=== PATIENT | male | born 1950 | race Caucasian/White ===

== ENCOUNTER 2023-07-24 06:15 | Inpatient (IN) | payer MEDICARE, SELFPAY ==
[2023-07-24] VITALS (16 sets, daily range): BP systolic 106–147; BP diastolic 68–111; PULSE 61–135; RESP 15–24; TEMP 35.3–36.9; O2SAT 94–99; BMI 40.4
--- NOTE | ~2023-07-24 | XR_ITS ---
Portable chest x-ray Comparison: 07/26/2023 Clinical History: Respiratory failure Findings: Endotracheal tube, NG tube, and right IJ line are in place. There is bibasilar pulmonary c onsolidation, left worse than right. Probable minimal left pleural effusion. Cardiomediastinal silho uette is stable. Bones and soft tissues are unremarkable. Impression: Minimal left pleural effusion with probable bibasilar pulmonary edema/atelectasis. Correlate clinical ly for pneumonia, especially the left lung base. Support tubes, as above. Reviewed, dictated and finalized at location . TAL GAZER Impression: Minimal left pleural effusion with probable bibasilar pulmonary edema/atelectas is. Correlate clinically for pneumonia, especially the left lung base. Support tubes, as above.
--- NOTE | ~2023-07-24 | XR_ITS ---
EXAMINATION: XR chest port-a-cath/central Exam Date/Time: 07/30/2023 15:07 HOISTMAN HISTORY: dialysis access Comparison: 07/30/2023 at 5:51 AM. RESULT: Lines, tubes, and devices: New left IJ dialysis catheter terminating in the right atrium. Endotrache al tube terminates 5.3 cm above the bunny. Subdiaphragmatic NG tube. Right IJ central line terminate s in the upper SVC. Multiple fractured sternotomy wires with displaced fragments that are stable in p osition. Lungs and pleura: Low volumes with crowding. Streaky linear bilateral lower lung opacities. Minimal bilateral costophrenic angle blunting. Mild diffuse reticular opacities. Cardiomediastinal silhouette: Stable. Other: No acute osseous or upper abdominal finding. IMPRESSION: Right IJ dialysis catheter in good position. Remaining lines and tubes detailed above. Mild interstitial edema. Small bilateral effusions. Bibasilar atelectasis. Infection is not excluded. Reviewed, dictated and finalized at location K. TMAN IMPRESSION: Right IJ dialysis catheter in good position. Remaining lines and tubes detailed above. Mild interstitial edema. Small bilateral effusions. Bibasilar atelectasis. Infe ction is not excluded.
--- NOTE | ~2023-07-24 | CT_ITS ---
EXAMINATION: 1. CT facial & cervical spine wo DATE: 07/24/2023 08:19 INDICATION: Fall with head injury TECHNIQUE: 1. Computed tomography (CT) of the maxillofacial region and of the cervical spine were performed with out intravenous contrast. Sagittal and coronal reconstructions of both regions were obtained. Automat ed exposure control and iterative reconstruction technique were employed. The dose-length product was 632.17 mGy-cm. COMPARISON: None. FINDINGS: Maxillofacial CT: Small anterior right frontal scalp hematoma. No fractures identified. Specifically the zygomatic arch es, mandible, nasal bones and price of the orbits are normal. Antral window procedure with resection of a portion of the medial wall of the right maxillary sinus. Remaining price of the maxillary sinuse s are intact.. Minimal rightward deviation of the nasal septum which parallels the contours of indete rminate source. Mild mucosal thickening the ethmoid sinuses. Frontal sinuses are hyperpneumatized. Ma stoid air cells and middle ear cavities are clear. There is streak artifact associated with multiple dental restorations. There are changes of bilateral intraocular lens replacement. Cervical spine CT: Alignment is normal. Vertebral body heights are normal. No fracture. Moderate disc height loss with s evere bilateral uncovertebral osteoarthritis at C5-C6 and mild disc height loss at C2-C3, C3-C4 and C 6-C7 with scattered mild and moderate uncovertebral osteoarthritis. There are disc bulges resulting i n mild central canal stenosis at C3-C4, C5-C6 and C6-C7. There is multilevel mild to moderate bilater al cervical facet osteoarthritis. There is multilevel mild cervical neural foraminal stenosis. Athero sclerotic calcifications along the bilateral carotid arteries. Cervical soft tissues are otherwise un remarkable. Change of prior median sternotomy wire fragments in the superior mediastinum. Visualized apices of lungs are clear. IMPRESSION: 1. No maxillofacial or cervical spinal fractures. 2. Moderate cervical spondylosis. Reviewed, dictated and finalized at location A. ENGINEER
--- NOTE | ~2023-07-24 | XR_ITS ---
EXAMINATION: XR chest 1V portable DATE: 07/24/2023 07:38 INDICATION: Congestive heart failure TECHNIQUE: frontal view of the chest was obtained. COMPARISON: Chest radiograph dated 09/13/2016 FINDINGS: Cardiomegaly with left paracardial fat pad. At the oblique linear opacity right midlung zone which co uld represent discoid atelectasis or minimal amount fluid along the fissures. No other pleural effusi on, airspace opacities, pulmonary edema or pneumothorax. Median sternotomy wires and plate-screws an d mediastinal surgical clips are seen, likely from prior coronary artery bypass grafting. IMPRESSION: 1. Cardiomegaly. 2. Trace pleural effusion along a fissure versus discoid atelectasis at the right midlung zone. Reviewed, dictated and finalized at location A. NICAL SOLUTIONS CONSULTANT IMPRESSION: 1. Cardiomegaly. 2. Trace pleural effusion along a fissure versus discoid atelectasis at the rig ht midlung zone.
--- NOTE | ~2023-07-24 | US_ITS ---
EXAMINATION: US renal BI DATE: 07/26/2023 19:45 INDICATION: CHARLIE, R/O HYDRO TECHNIQUE: Multiple grayscale and Doppler ultrasound images of the kidneys were obtained. COMPARISON: CT abdomen pelvis 07/26/2023 FINDINGS: The right kidney measures 9.5 x 5.7 x 5.4 cm. The left kidney measures cm. The kidneys demonstrate no rmal parenchymal echogenicity. There is no hydronephrosis. The bladder is decompressed by a Ghotra cat heter and therefore not well evaluated. IMPRESSION: Unremarkable renal sonogram findings. Reviewed, dictated and finalized at location K. ATRIC GENETICIST
--- NOTE | ~2023-07-24 | XR_ITS ---
Portable chest x-ray Comparison: 07/28/2023 Clinical History: Respiratory failure Findings: Endotracheal tube, NG tube, and right IJ line remain in place. There is bibasilar airspace disease, unchanged. Cardiomediastinal silhouette is stable. Bones and soft tissues are unremarkable . Impression: Stable bibasilar airspace disease. Correlate for pulmonary edema/atelectasis versus pneumonia. Support tubes, as above. Reviewed, dictated and finalized at location . R SHOP SUPERINTENDENT Impression: Stable bibasilar airspace disease. Correlate for pulmonary edema/atelectasis ve rsus pneumonia. Support tubes, as above.
--- NOTE | ~2023-07-24 | XR_ITS ---
EXAMINATION: XR abdomen gastric tube insert DATE: 07/28/2023 16:44 INDICATION: Orogastric tube placement. TECHNIQUE: A supine view of the abdomen was obtained. COMPARISON: Abdomen radiograph 07/26/2023 FINDINGS: The lower abdomen and right side of the abdomen are excluded. The orogastric tube tip is in the stomach. IMPRESSION: 1. Orogastric tube tip in the stomach. Reviewed, dictated and finalized at location E. R/RELAY TECHNICIAN
--- NOTE | ~2023-07-24 | XR_ITS ---
EXAMINATION: XR chest 1V portable INDICATION: Respiratory failure TECHNIQUE: Portable AP chest at 0551 hours COMPARISON: 07/29/2023 FINDINGS: The endotracheal tube ends approximately 4.5 cm above the bunny. The nasogastric tube is f ollowed as far as the stomach. Its tip is beyond the inferior margin of the radiograph. A right inter nal jugular central venous catheter ends with its tip in the proximal superior vena cava. Cardiomegal y is noted. There are small stable pleural effusions. Bibasilar airspace opacities persist without si gnificant change. There is a diffuse interstitial pattern with slight worsening. There is no pneumoth orax. Changes of prior cardiac surgery are noted. IMPRESSION: 1. Cardiomegaly with slightly worsened pulmonary edema. 2. Stable bibasilar airspace opacities, consistent with atelectasis versus pneumonia. 3. Small pleural effusions. Reviewed, dictated and finalized at location F. SUPERVISOR IMPRESSION: 1. Cardiomegaly with slightly worsened pulmonary edema. 2. Stable bibasilar airspace opacities, consistent with atelectasis versus pneu monia. 3. Small pleural effusions.
--- NOTE | ~2023-07-24 | XR_ITS ---
EXAMINATION: XR abdomen/kub 1V DATE: 07/25/2023 22:40 INDICATION: Vomiting. TECHNIQUE: An upright view of the abdomen was obtained. COMPARISON: None. FINDINGS: The small bowel is normal in caliber. There is distention of the colon. There is a moderate volume of stool in the colon. Median sternotomy wires and mediastinal surgical clips are seen, likel y from prior coronary artery bypass grafting. Partially visualized is instrumentation in right pelvis . IMPRESSION: 1. Distention of the colon, which may be adynamic ileus or distal obstruction. Reviewed, dictated and finalized at location E. MOBILE ACCESSORIES INSTALLER
--- NOTE | ~2023-07-24 | CT_ITS ---
Non-contrast CT scan of the Abdomen and Pelvis Clinical indication: Abdominal distention and pain Technique: 2.5 mm axial scans were obtained through the abdomen and pelvis without intravenous or or al contrast. Dose reduction technique was used on this scan by utilizing automated exposure control a nd iterative reconstruction technique. The dose-length product (DLP) was 1923.04 mGy-cm. Findings: Images through the lung bases reveal small bilateral pleural effusions with bibasilar atel ectatic change. Cardiomegaly noted. There is no evidence of renal or ureteral calculi. The kidneys and the ureters are nondilated. The liver, spleen, pancreas, and adrenals appear normal. Small amount of layering gallbladder sludge or small gallstones are present. There are atherosclerotic calcifications of the aorta. There is no evidence of bowel obstruction. Large amount of stool suggests constipation. No definite p athologic bowel wall thickening. Small amount of abdominal ascites and minimal mesenteric edema prese nt. Images through the pelvis are degraded by streak artifact from right hip arthroplasty. There is no ev idence of ascites or lymphadenopathy. Urinary bladder collapsed with Ghotra catheter. No pelvic mass e vident. Fat-containing right inguinal hernia noted. Impression: Constipation. No definite CT evidence for cholecystitis. Small amount of ascites and minimal mesenteric edema, nonspecific. Fat-containing right inguinal hernia. Cholelithiasis/gallbladder sludge. Small bilateral pleural effusions with bibasilar atelectasis. Reviewed, dictated and finalized at [facility]. RVISOR FIREARMS Impression: Constipation. No definite CT evidence for cholecystitis. Small amount of ascites and minimal mesenteric edema, nonspecific. Fat-containing right inguinal hernia. Cholelithiasis/gallbladder sludge. Small bilateral pleural effusions with bibasilar atelectasis.
--- NOTE | ~2023-07-24 | XR_ITS ---
Portable chest x-ray Comparison: 07/24/2023 Clinical History: Line placement Findings: Endotracheal tube, NG tube, and right IJ line are in satisfactory positions. There is prob able minimal central congestive change and mild bibasilar haziness. Cardiomediastinal silhouette is stable. Bones and soft tissues are unremarkable. Impression: Support tubes, as above. Probable mild bibasilar pulmonary edema/atelectasis. Reviewed, dictated and finalized at location M. IER RECEPTIONIST Impression: Support tubes, as above. Probable mild bibasilar pulmonary edema/atelectasis.
--- NOTE | ~2023-07-24 | XR_ITS ---
Upright portable view of the abdomen Clinical history: NG tube placement Findings: NG tube is in satisfactory position. Bowel gas pattern is nonspecific. No evidence for obst ruction or free air. No abnormal mass lesion or calcification is seen. Osseous structures are intact. Impression: NG tube in satisfactory position. Reviewed, dictated and finalized at [facility]. ER OYSTER Impression: NG tube in satisfactory position.
--- NOTE | ~2023-07-24 | US_ITS ---
EXAMINATION: US abdomen limited DATE: 07/26/2023 19:50 INDICATION: Elevated LFTs TECHNIQUE: Multiple grayscale and Doppler ultrasound images of limited portions of the abdomen were o btained. COMPARISON: CT abdomen pelvis 07/26/2023. FINDINGS: Examination limited by body habitus and intubation. The visualized portions of the pancreas are normal. The liver is normal with normal echogenicity and echotexture. No surface nodularity. Nor mal hepatopetal flow in the main portal vein. Layering mobile sludge in the gallbladder. Small volume pericholecystic fluid and in the right upper quadrant. The common bile duct measures 4 mm. No sonogr aphic Efrnando sign could not be assessed. IMPRESSION: Mobile gallbladder sludge. Gallbladder wall thickening. Small volume pericholecystic and right upper quadrant fluid. Reviewed, dictated and finalized at location K. TICS FABRICATOR AND ASSEMBLER IMPRESSION: Mobile gallbladder sludge. Gallbladder wall thickening. Small volume pericholec ystic and right upper quadrant fluid.
--- NOTE | ~2023-07-24 | CT_ITS ---
EXAMINATION: CT brain wo con DATE: 07/24/2023 08:19 INDICATION: Fall with posterior head injury TECHNIQUE: Computed tomography (CT) of the head was performed without intravenous contrast. Sagittal and coronal reconstructions were performed. The mA was adjusted according to patient size. Iterative reconstruction technique was employed. The dose-length product was 681.00 mGy-cm. COMPARISON: None FINDINGS: Small right frontal scalp hematoma. No calvarial fracture. No acute intracranial hemorrhage, acute in farction or abnormal extra axial fluid collection. There is mild scattered white matter hypoattenuati on consistent with chronic small vessel ischemic disease. Symmetric prominence of the sulci consisten t with mild age-appropriate diffuse cerebral volume loss. Ventricles are normal and symmetric. No mas s/mass effect. Changes of bilateral intraocular lens replacement. The orbits and mastoid air cells ar e normal. Mild mucosal thickening in the ethmoid sinuses and prior cervical surgery with resection of the medial wall of the right maxillary sinus. Intracranial calcified cerebral atherosclerosis is not ed. IMPRESSION: 1. No fracture or acute intracranial process. 2. Age-related changes in the brain including mild diffuse volume loss and mild scattered white matte r hypoattenuation consistent with chronic small vessel ischemic disease. Reviewed, dictated and finalized at location A. ER OPERATOR ASBESTOS SHINGLE IMPRESSION: 1. No fracture or acute intracranial process. 2. Age-related changes in the brain including mild diffuse volume loss and mild scattered white matter hypoattenuation consistent with chronic small vessel is chemic disease.
--- NOTE | ~2023-07-24 | XR_ITS ---
Portable chest x-ray Comparison: 07/27/2023 Clinical History: Respiratory failure Findings: Endotracheal tube, NG tube, and right IJ line are in satisfactory positions. There is biba silar airspace disease. Cardiomediastinal silhouette is stable. Bones and soft tissues are unremarka ble. Impression: Probable bibasilar pulmonary edema/atelectasis. Correlate clinically for pneumonia. Support tubes, as above. Reviewed, dictated and finalized at location . HOUSE PRODUCTION WORKER Impression: Probable bibasilar pulmonary edema/atelectasis. Correlate clinically for pneumo vianney. Support tubes, as above.
--- NOTE | ~2023-07-24 | XR_ITS ---
EXAMINATION: XR chest 1V portable INDICATION: Respiratory failure TECHNIQUE: Portable AP chest at 0539 hours COMPARISON: 07/30/2023 FINDINGS: The endotracheal and nasogastric tubes appear to be stable in position. A right internal ju gular central venous catheter ends with its tip in the proximal superior vena cava. Diffuse interstit ial opacities persist without significant change. Cardiomegaly is noted. There are changes of prior c ardiac surgery. There are small pleural effusions. Bibasilar airspace opacities are unchanged. There is no pneumothorax. IMPRESSION: 1. Cardiomegaly with stable pulmonary edema. 2. Stable bibasilar airspace opacities, consistent with atelectasis versus pneumonia. 3. Small pleural effusions. Reviewed, dictated and finalized at location F. ATRIC SPEECH THERAPIST IMPRESSION: 1. Cardiomegaly with stable pulmonary edema. 2. Stable bibasilar airspace opacities, consistent with atelectasis versus pneu monia. 3. Small pleural effusions.
--- NOTE | 2023-07-24 06:23 | ECG_ITS ---
Measurements Intervals [place] Rate: 151 P: [place]: 0 QRS: -56 QRSD: 135 T: 95 QT: 316 QTc: 501 Interpretive Statements ATRIAL FLUTTER/TACHYCARDIA WITH RAPID VENTRICULAR RESPONSE LEFT AXIS DEVIATION NONSPECIFIC INTRAVENTRICULAR CONDUCTION DELAY [130+ ms QRS DURATION] POSSIBLE ANTERIOR MYOCARDIAL INFARCTION , OF INDETERMINATE AGE [30 ms Q WAVE IN V3/V4, OR R < 0.2 mV IN V4 ABNORMAL ECG] NO PREVIOUS ECG AVAILABLE FOR COMPARISON Electronically Signed On 07-24-2023 12:05:26 FRUIT LOADER by Steve Shaw M.D.
[2023-07-24 06:44] LABS: Basophils Absolute Auto 0.1 K/mm3 (0.0-0.1); Basophils Percent Auto 0.4 % (0.2-1.2); Eosinophils Absolute Auto 0.1 K/mm3 (0-0.3); Eosinophils Percent Auto 1.1 % (0-4.4); Hematocrit 34.5 % (42.0-52.0); Hemoglobin 10.5 g/dL (14.0-18.0); Immature Granulocyte Absolute 0.06 K/mm3 (0.00-0.031); Immature Granulocyte Percent A 0.5 % (0-0.5); Lymphocytes Absolute Auto 0.59 K/mm3 (0.9-3.2); Lymphocytes Percent Auto 5.2 % (18.3-44.2); Mean Corpuscular HGB Conc 30.4 g/dl (32-36); Mean Corpuscular Hemoglobin 24.8 pg (26-34); Mean Corpuscular Volume 81.4 fl (80-100); Mean Platelet Volume 9.2 fl (7.4-10.4); Monocytes Percent Auto 8.3 % (2.6-8.5); Neutrophils Absolute Auto 9.6 K/mm3 (1.3-6.7); Neutrophils Percent Auto 84.5 % (45.5-73.1); Platelet Count Result 281 k/mm3 (150-375); Red Blood Count 4.24 M/mm3 (4.6-6.20); Red Cell Distribution Width 19.1 % (11.5-14.5); White Blood Count 11.4 K/mm3 (4.5-10.0)
[2023-07-24] MEDS: SODIUM CHLORIDE 0.9% IV 1,000 ML 999 ML IV CONT (06:48)
[2023-07-24] MEDS: dilTIAZem HCl INJ 25 MG/5 ML VIAL 20 MG IV PUSH (06:55)
[2023-07-24] MEDS: dilTIAZem 100 MG/100 ML 100 MG/100 ML BAG IV CONT ×2 (06:58→18:34)
[2023-07-24 07:01] LABS: Alanine Aminotransferase 16 U/L (6-50); Alkaline Phosphatase 216 U/L (38-126); Anion Gap 10 mmol/L (8-16); Aspartate Amino Transferase 32 U/L (17-59); Bilirubin,Total 0.9 mg/dL (0.2-1.3); Blood Urea Nitrogen 30 mg/dL (9-20); Calcium 10.6 mg/dL (8.4-10.2); Carbon Dioxide 32 mmol/L (22-30); Chloride 88 mmol/L (98-107); Estimated CRCL calculation 54 ml/min; Estimated Glomerular Filt Rate 40; Glucose 126 mg/dL (65-110); Sodium 130 mmol/L (137-145)
[2023-07-24 07:09] LABS: INR 1.6
[2023-07-24 07:10] LABS: Partial Thromboplastin Time 40.9 SECONDS (22.3-36.8)
[2023-07-24 07:15] LABS: NT Pro B Type Natriuretic Pept 7590 pg/mL (19.9-100)
--- NOTE | 2023-07-24 09:58 | ED.FALL ---
HPI - Fall General Chief Complaint: Fall Stated Complaint: LAC TO FOREHEAD S/P GLF Time Seen by Provider: 07/24/23 07:07 Source: patient, EMS, RN notes reviewed and old records reviewed Mode of arrival: EMS Limitations: no limitations History of Present Illness HPI Narrative: This is a 73 year old male with history of afib who presents for evaluation after a fall. PAtient states he was walking and his legs gave out. He fell and he it his head but he is unsure of what object. He denies LOC but he takes chronic anticoagulation. He denies dizziness, chest pain or shortness of breath. He denies any injuries. He states he is up to date on his tetanus. PRior to my arrival, it was reported patient was in afib with RVR with low blood pressure. He was given diltiazem [address] on an infusion. Related Data Home Medications Medication Instructions Recorded Confirmed furosemide 40 mg tablet 40 mg PO BID 07/24/23 07/24/23 gabapentin 400 mg capsule 400 mg PO TID 07/24/23 07/24/23 insulin glargine 100 unit/mL (3 50 unit subcut DAILY 07/24/23 07/24/23 mL) subcutaneous pen (Lantus Solostar U-100 Insulin) insulin lispro 100 unit/mL See Protocol subcut TIDWM 07/24/23 07/24/23 subcutaneous pen (Humalog KwikPen (U-100) Insulin) losartan 25 mg tablet 25 mg PO DAILY 07/24/23 07/24/23 magnesium oxide 400 mg (241.3 mg 400 mg PO BID 07/24/23 07/24/23 magnesium) tablet oxycodone myristate 18 mg capsule 18 mg PO BID 07/24/23 07/24/23 sprinkle extended release 12hr(DON'T CRUSH) (Xtampza ER) rivaroxaban 2.5 mg tablet (Xarelto) 2.5 mg PO Q12H 07/24/23 07/24/23 rosuvastatin 40 mg tablet 40 mg PO DAILY 07/24/23 07/24/23 spironolactone 25 mg tablet 25 mg PO BID 07/24/23 07/24/23 tamsulosin 0.4 mg capsule 0.4 mg PO DAILY 07/24/23 07/24/23 torsemide 20 mg tablet 20 mg PO BID 07/24/23 07/24/23 trazodone 50 mg tablet 50 mg PO HS 07/24/23 07/24/23 Allergies Allergy/AdvReac Type Severity Reaction Status Date / Time No Known Allergies Allergy Verified 07/24/23 06:59 Review of Systems Constitutional: Constitutional: Denies weakness Cardiovascular: Cardiovascular: Denies syncope, Denies rapid heart rate, Denies irregular heart rhythm, Denies leg edema and Denies dyspnea Respiratory: Respiratory: Denies chest congestion, Denies hemoptysis, Denies excessive phlegm production and Denies dyspnea Gastrointestinal: Gastrointestinal: Denies abdominal pain, Denies hematochezia, Denies diarrhea and Denies vomiting Genitourinary: Genitourinary: Denies hematuria, Denies dysuria, Denies penile discharge and Denies testicular pain Musculoskeletal: Musculoskeletal: Denies joint swelling, Denies loss of height and Denies muscle weakness Neurologic: Denies syncope, Denies focal weakness and Denies weakness [facility] Past Medical History Medical History (Updated 07/24/23 @ 17:21 by Beatrice Ray MD) Benign prostatic hyperplasia Chronic anemia Combined systolic and diastolic congestive heart failure Previous echocardiogram showed diastolic dysfunction with mild LV systolic dysfunction with EF of 45 to 50%. Coronary artery disease Hyperlipidemia Hypertension Paroxysmal atrial fibrillation Pericardial effusion Status post pericardial window. Peripheral neuropathy Peripheral vascular disease Type 2 diabetes mellitus Surgical History Surgical History (Updated 07/24/23 @ 13:49 by Pau Perrin PA-C) History of above-knee amputation of both lower extremities History of total right hip arthroplasty (2011) History of transurethral resection of prostate (07/2017) Status post coronary artery bypass grafts x 5 (06/2016) Status post creation of pericardial window (06/2016) Family History Family History (Updated 07/24/23 @ 13:47 by Pau Perrin PA-C) Mother Acute myocardial infarction Coronary artery disease Diabetes mellitus Father Colon cancer Social History Social History (Updated 07/24/23 @ 13:47 by Pau Sim
[2023-07-24 12:55] LABS: Glucose Point of Care 110 mg/dl (65-105)
--- NOTE | 2023-07-24 13:33 | PM.IMHP ---
H&P: HPI History of Present Illness Date/Time: 07/24/23 13:30 Chief Complaint: Fall. Narrative: This is a 73-year-old male with history of type 2 diabetes mellitus, hypertension, combined systolic and diastolic congestive heart failure, paroxysmal atrial fibrillation, coronary artery disease status post CABG in June 2016, peripheral vascular disease status post bilateral [id number] amputations, chronic anemia, and benign prostatic hyperplasia who presented to the emergency department via EMS from home for evaluation after a fall. The patient provides the following history. Today he was getting up from his chair and lost his balance, possibly slipping on a small amount of urine that had leaked from his Ghotra catheter bag, causing him to fall forward and hit his head on his walker. He has multiple skin tears on his arms and sustained a laceration on his right forehead above the eyebrow. Luckily he had no other injuries. There was no loss of consciousness. He called EMS for lift assist as he is a bilateral lower extremity amputee and had difficulties getting up. He was brought in for evaluation after he was found to have atrial fibrillation with rapid ventricular response. On arrival to the emergency department he was found to be in atrial fibrillation with rapid ventricular response and he was started on a diltiazem drip with improvement in his rate. Labs were significant for a BUN of 30, creatinine 1.70, sodium 130, chloride 88, calcium 10.6, troponin up to 0.520. With further questioning he endorses having 4 to 6 loose stools a day for the past week or so and he thinks that he is dehydrated. He has not had any sensations of racing heart or palpitations and he also denies lightheadedness, dizziness, chest pain, pleuritic pain, and shortness of breath. Appetite has been okay but he thinks he is dehydrated. No nausea or vomiting. Review of Systems Review of Systems: Twelve systems were reviewed and are negative except for as per HPI. [facility] Past Medical History Medical History (Updated 07/25/23 @ 00:00 by Pau Perrin PA-C) Benign prostatic hyperplasia Chronic anemia Combined systolic and diastolic congestive heart failure Previous echocardiogram showed diastolic dysfunction with mild LV systolic dysfunction with EF of 45 to 50%. Coronary artery disease Hyperlipidemia Hypertension Paroxysmal atrial fibrillation Pericardial effusion Status post pericardial window. Peripheral neuropathy Peripheral vascular disease Type 2 diabetes mellitus Surgical History Surgical History (Updated 07/24/23 @ 23:54 by Pau Perrin PA-C) History of left below knee amputation History of right above knee amputation History of total right hip arthroplasty (2011) History of transurethral resection of prostate (07/2017) Status post coronary artery bypass grafts x 5 (06/2016) Status post creation of pericardial window (06/2016) Family History Family History Mother Acute myocardial infarction Coronary artery disease Diabetes mellitus Father Colon cancer Social History Social History (Updated 07/24/23 @ 23:54 by Pau Perrin PA-C) Social History: Surrogate medical decision maker: Jayy Sandsyeimy, brother. Code status: Full code. Smoking status: Never smoker Alcohol intake: never Substance use: never Lack of Transportation: No Lack of Food: Never True Current Housing: I Do Not Have Housing Concerned About Future Housing: No Difficulty Paying Gas/Electric Bills: No Difficulty Paying for Meds: No Currently Unemployed: No Education: High School Diploma/GED Difficulty w/ Childcare or Family Care: No Spiritual care concerns: No Meds Home Medications and Allergies Home Medications Medication Instructions Recorded Confirmed Type furosemide 40 mg tablet 40 mg PO BID 07/24/23 07/24/23 History gabapentin 400 mg capsule 400 mg PO T
[2023-07-24 15:48] LABS: Hemoglobin A1C 7.5 % (<5.7)
--- NOTE | 2023-07-24 16:30 | ADMGEN ---
This patient, Brian Iyer, was admitted to IMU Room 232-01. Patient/family oriented to hospital policies and general routines including ID bracelet, bed and alarms, visiting hours, pain management, procedures, bathroom and other care routines, personal items, smoking policy, room service/diet, and visiting hours. Information on how to activate the Rapid Response Team has been discussed. Patient/Family are encouraged to report perceived risks to care and to ask questions if they do not understand what they are told or what they should do.
[2023-07-24 17:41] LABS: Glucose Point of Care 110 mg/dl (65-105)
[2023-07-24] MEDS: SODIUM CHLORIDE 0.9% IV 1,000 ML 100 ML IV CONT (18:34)
[2023-07-24] MEDS: GABAPENTIN 400 MG CAPSULE PO (18:34)
[2023-07-24] MEDS: MAGNESIUM OXIDE 400 MG TABLET PO (18:34)
[2023-07-24 18:36] LABS: Lipase 23 U/L (23-300)
[2023-07-24 18:53] LABS: Troponin I 0.492 ng/mL (0.000-0.034)
[2023-07-24] MEDS: RIVAROXABAN 2.5 MG TABLET PO (20:26)
[2023-07-24] MEDS: traZODone HCL 50 MG TABLET PO (20:26)
[2023-07-24 20:31] LABS: Glucose Point of Care 201 mg/dl (65-105)
[2023-07-24] MEDS: INSULIN ASPART (*BKC) 100 UNITS/ML SUB-Q (20:33)
[2023-07-24] MEDS: oxyCODONE HCL (*CRX) 20 MG TAB SR 12HR PO (21:26)
[2023-07-25] VITALS (25 sets, daily range): BP systolic 83–156; BP diastolic 47–96; PULSE 65–148; RESP 20–26; TEMP 35.6–36.4; O2SAT 90–98
--- NOTE | 2023-07-25 | ECHO_ITS ---
Patient Info Name: Brian Iyer Age: 73 years : 1950 Gender: Male Ht: 70 in Wt: 340 lbs BSA: 2.84 m2 HR: 106 bpm BP: 148 / 70 mmHg Heart Rhythm: Tachycardia Technical Quality: Poor Exam Date: 07/25/2023 1:41 PM Exam Location: Echo Lab Patient Status: Inpatient Admit Date: 07/25/2023 Staff Ordering Physician: Pau Perrin PA-C Dredge Operator Supervisor: Radha Rivera RDCS Attending Provider: Lisset Arteaga DO Referring Physician: Aydin RIVERA; Exam Type: CA echo dop color flow w con Study Info Indications - elevated troponin Complete two-dimensional, color flow and Doppler transthoracic echocardiogram is performed with contrast to opacify the left ventricle and to improve the deliniation of the left ventricle endocardial borders. Contrast/Agitated Saline Contrast/Ag. Saline: Definity Amount: 2.00 ml Administered By: Radha Rivera RDCS Existing IV Access: Yes IV Access Condition: patent with no signs of infiltration Summary 1. Mild left ventricular enlargement with mild concentric hypertrophy. Severe left ventricular dysfunction with an estimated ejection fraction of 25-30%. There was severe hypokinesis of the inferior wall and septum, distal anterior wall, and distal lateral wall. The apex was nearly akinetic. Diastolic dysfunction is present. There is abnormal septal motion which is due in part to the bundle branch block but also some flattening during diastole consistent with elevated right-sided pressures. 2. There is keks-an-kqdeexli right ventricular enlargement and hypokinesis. 3. Moderate left atrial enlargement. 4. Mild tricuspid regurgitation. 5. Severe pulmonary hypertension, estimated pulmonary arterial systolic pressure is 71 mmHg. 6. Atrial fibrillation with heart rates running 110-1 40s. 7. Very technically difficult study due to body habitus and rapid ventricular rate. Definity echo contrast used. 8. Consider repeating with a limited echo and with definity, once heart rate is controlled. Left Ventricle Left ventricular chamber dimension is mildly enlarged. Left ventricular systolic function is normal, estimated at 25-30%. There is mildly increased left ventricular wall thickness. Left ventricular septal wall motion is abnormal with septal motion related to bundle branch block. The left ventricular diastolic function is abnormal. Right Ventricle Right ventricular chamber dimension is mildly enlarged. Right ventricular systolic function is reduced. Left Atria Left atrial chamber dimension is moderately enlarged. Right Atria Right atrial chamber dimension is normal. Aortic Valve The aortic valve is trileaflet. There is no aortic valve sclerosis. There is no aortic valve stenosis. There is no aortic valve regurgitation. Pulmonic Valve The pulmonic valve is normal. There is no pulmonic valve stenosis. There is trace pulmonic regurgitation. Mitral Valve The mitral valve has normal leaflets. There is no mitral valve stenosis. There is no mitral valve regurgitation. There is mild mitral valve calcification. Tricuspid Valve The tricuspid valve leaflets are normal. There is no significant tricuspid valve stenosis. There is mild tricuspid valve regurgitation. Severe pulmonary hypertension, estimated pulmonary arterial systolic pressure is 71 mmHg. Pericardium/Pleural The pericardium appears normal. There is no pericardial effusion. Inferior Vena Cava Dilated inferior vena cava with <50% collapse upon inspiration consistent with significantly elevated right a
[2023-07-25 03:21] LABS: Toxigenic C. Diff POSITIVE (NEGATIVE)
[2023-07-25] MEDS: SODIUM CHLORIDE 0.9% IV 1,000 ML 100 ML IV CONT ×2 (04:33→16:03)
[2023-07-25] MEDS: dilTIAZem 100 MG/100 ML 100 MG/100 ML BAG 10 MG IV CONT (04:34)
--- NOTE | 2023-07-25 04:55 | PC.NURSE ---
Patient has been extremely belligerent, uncooperative with care and manipulative throughout the night. Rather than using his call light, he pulls off his monitor leads, pulls out his IV, states he wants to go to [place]. He continues to be alert and oriented X 3. In trying to obtain a urine sample from his Ghotra catheter, the patient removed the clamp from the tubing making urine collection unacceptable. Again, he wants to go to [place]. I advised the patient that if he wants to leave, and can find a ride, we can send him home against medical advice, however he is at risk for sudden due to AFIB/RVR, fall risk on Xarelto after being admitted with a fall, and frequent liquid stools due to CDIFF. Patient states understanding, however continues to call people on his phone. dog licenser, and nursing forming and assembling supervisor have been made aware of the situation. As of this point, patient has not been physically abusive therefore no need to involve security.
[2023-07-25 05:38] LABS: Basophils Absolute Auto 0.1 K/mm3 (0.0-0.1); Basophils Percent Auto 0.3 % (0.2-1.2); Eosinophils Percent Auto 0.3 % (0-4.4); Hematocrit 32.1 % (42.0-52.0); Hemoglobin 9.9 g/dL (14.0-18.0); Immature Granulocyte Absolute 0.09 K/mm3 (0.00-0.031); Immature Granulocyte Percent A 0.6 % (0-0.5); Lymphocytes Absolute Auto 0.56 K/mm3 (0.9-3.2); Lymphocytes Percent Auto 3.6 % (18.3-44.2); Mean Corpuscular HGB Conc 30.8 g/dl (32-36); Mean Corpuscular Hemoglobin 25.3 pg (26-34); Mean Corpuscular Volume 81.9 fl (80-100); Mean Platelet Volume 9.2 fl (7.4-10.4); Monocytes Absolute Auto 1.1 K/mm3 (0.1-0.6); Monocytes Percent Auto 6.9 % (2.6-8.5); Neutrophils Absolute Auto 13.8 K/mm3 (1.3-6.7); Neutrophils Percent Auto 88.3 % (45.5-73.1); Platelet Count Result 317 k/mm3 (150-375); Red Blood Count 3.92 M/mm3 (4.6-6.20); Red Cell Distribution Width 19.4 % (11.5-14.5); White Blood Count 15.6 K/mm3 (4.5-10.0)
[2023-07-25 06:14] LABS: Alanine Aminotransferase 18 U/L (6-50); Albumin Level 3.9 g/dL (3.5-5.1); Alkaline Phosphatase 199 U/L (38-126); Anion Gap 13 mmol/L (8-16); Aspartate Amino Transferase 41 U/L (17-59); Bilirubin,Total 1.2 mg/dL (0.2-1.3); Blood Urea Nitrogen 27 mg/dL (9-20); Calcium 9.8 mg/dL (8.4-10.2); Carbon Dioxide 26 mmol/L (22-30); Chloride 92 mmol/L (98-107); Estimated CRCL calculation 57 ml/min; Estimated Glomerular Filt Rate 54; Glucose 163 mg/dL (65-110); Magnesium 2.2 mg/dL (1.6-2.3); Potassium 4.2 mmol/L (3.4-5.0); Sodium 131 mmol/L (137-145)
[2023-07-25] MEDS: VANCOMYCIN ORAL 125 MG/2.5 ML SYRUP PO ×3 (07:02→18:34)
--- NOTE | 2023-07-25 08:26 | PM.CNCAR ---
Assessment and Plan Assessment and plan (1) Atrial fibrillation with rapid ventricular response: Code(s): I48.91 - Unspecified atrial fibrillation Status: Acute Assessment and Plan: New diagnosis atrial fibrillation, chronicity is unknown. He is currently on a diltiazem drip and heart rate remains significantly elevated. Discontinue diltiazem drip in favor of amiodarone. Will administer bolus first followed by drip per protocol. He is on low dose Xarelto for CV risk reduction. Will shift this to full dose for stroke prophylaxis with AF Check echo Continue telemetry Daily BMP. Want to keep K+ ~4,0 and Mag ~2.0 (2) Combined systolic and diastolic congestive heart failure: Code(s): I50.40 - Unspecified combined systolic (congestive) and diastolic (congestive) heart failure Status: Acute Assessment and Plan: He has abdominal edema and some edema in R lower extremity. Small pleural effusions on CXR. NTpro BNP 7590. He takes furosemide 40mg b.i.d. at home which should be resumed Daily weight Strict intake and output CHF counseling (3) Elevated troponin: Code(s): R79.89 - Other specified abnormal findings of blood chemistry Status: Acute Assessment and Plan: Troponin levels 0.330, 0.520, and 0.492. He denies chest pain. Likely demand ischemia secondary to volume overload and known underlying CAD rather than ACS. He did undergo an angiogram in August of 2021 to assess graft patentcy and was found to have patent grafts to the LAD, diag/OM, and PDA and was felt to be optimally revascularized. No plan to undergo any type of ischemic evaluation at this time. (4) Coronary artery disease: Code(s): I25.10 - Atherosclerotic heart disease of [place] coronary artery without angina pectoris Status: Acute Assessment and Plan: History of severe multivessel CAD s/p CABG in 2016. Stable. Continue statin. Since he is on systemic a/c for AF will not restart his ASA. History of Present Illness History of Present Illness Consult date/time: 07/25/23 08:26 Requesting physician: Beatrice Ray MD Consult reason: atrial fibrillation Reason For Visit: atrial fibrillation with rvr Narrative: Mr. Iyer is a 73 year old male with a history of coronary artery disease and ischemic cardiomyopathy. He also has extensive peripheral vascular disease. This is a patient who presents to the hospital after sustaining a fall. He states he was getting up from his chair and while walking to the other side of the room tripped and fell. He denies losing consciousness. He was found to be in atrial fibrillation with rapid ventricular response in the ED and has been placed on a diltiazem drip. His rate remains significantly elevated, generally ranging from 120bpm - 150bpm. He feels palpitations intermittently but denies any chest pain or shortness of breath. He does endorse orthopnea and some abdominal bloating/fullness over the past couple of weeks. He is intermittently confused at the time of my evaluation. Review of Systems Review of Systems: All systems reviewed & are unremarkable except as noted in HPI and below PMFSH Past Medical History Medical History (Updated 07/25/23 @ 16:06 by HANNAH Espinoza) Benign prostatic hyperplasia Chronic anemia Combined systolic and diastolic congestive heart failure Previous echocardiogram showed diastolic dysfunction with mild LV systolic dysfunction with EF of 45 to 50%. Coronary artery disease Hyperlipidemia Hypertension Paroxysmal atrial fibrillation Pericardial effusion Status post pericardial window. 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
[2023-07-25 08:28] LABS: Glucose Point of Care 176 mg/dl (65-105)
[2023-07-25] MEDS: ROSUVASTATIN 10 MG TABLET 40 MG PO (10:26)
[2023-07-25] MEDS: GABAPENTIN 400 MG CAPSULE PO ×3 (10:26→16:04)
[2023-07-25] MEDS: oxyCODONE HCL (*CRX) 20 MG TAB SR 12HR PO ×2 (10:27→21:57)
[2023-07-25] MEDS: MAGNESIUM OXIDE 400 MG TABLET PO ×2 (10:27→16:04)
[2023-07-25] MEDS: TAMSULOSIN HCL 0.4 MG CAPSULE PO (10:27)
[2023-07-25] MEDS: AMIODARONE 150 MG/D5W 100 ML 150 MG/100 ML BAG 600 MG IV CONT (10:28)
[2023-07-25] MEDS: AMIODARONE 360 MG/D5W 200 ML 360 MG/200 ML BAG 33.33 MG IV CONT (10:29)
[2023-07-25] MEDS: INSULIN GLARGINE (*BKC) 100 UNITS/ML 50 UNITS SUB-Q (10:43)
[2023-07-25 12:19] LABS: Glucose Point of Care 213 mg/dl (65-105)
[2023-07-25] MEDS: PERFLUTREN LIPID MICROSPHERES 1.5 ML VIAL DILUTED TO 10 ML TOTAL VOLUME IV PUSH (13:00)
[2023-07-25] MEDS: INSULIN ASPART (*BKC) 100 UNITS/ML SUB-Q ×2 (13:11→17:30)
[2023-07-25] MEDS: ONDANSETRON INJ 4 MG/2 ML VIAL IV PUSH (13:12)
--- NOTE | 2023-07-25 13:39 | PCOTNOTE ---
Addendum entered by Kamila Mack OT 07/25/23 13:41: Nursing stated pt. currently confused and has uncontrolled HR, requested follow up tomorrow/ Original Note: Attempted to see pt. for occupational therapy evaluation. Pt. currently getting ECHO.
[2023-07-25] MEDS: METOPROLOL TARTRATE 12.5 MG TABLET PO ×2 (14:15→21:58)
--- NOTE | 2023-07-25 15:16 | P.PNIM_ITS ---
Progress Note: A&P Assessment and Plan (1) Atrial fibrillation with rapid ventricular response: Code(s): I48.91 - Unspecified atrial fibrillation Status: Acute Assessment and Plan: Cardiology consulted: * Discontinue diltiazem drip in favor of amiodarone. Will administer bolus first followed by drip per protocol. * Check echo * Daily BMP. Want to keep K+ ~4,0 and Mag ~2.0 * Continue Xarelto for stroke prophylaxis (2) Elevated troponin: Code(s): R79.89 - Other specified abnormal findings of blood chemistry Status: Acute Assessment and Plan: May be related to above. No complaints of chest pain. EKG shows possible anterior myocardial infarction of indeterminant age. * troponins trend did not con't to elevate * Echocardiogram ordered * cardiology consulted (3) Renal failure: Code(s): N19 - Unspecified kidney failure Status: Acute Assessment and Plan: * Creatinine is 1.70 on admission, now 1.30 . No recent labs to establish baseline. * May have underlying chronic kidney disease though he was likely dehydrated from decreased oral intake an ongoing loose stools. * Avoid nephrotoxic agents and renally dose all medications. * Trend labs * UA ordered, delayed due to chronic spencer change (4) Fall from ground level: Code(s): W18.30XA - Fall on same level, unspecified, initial encounter Status: Acute Assessment and Plan: * Fall from ground level today with head trauma and several skin tears. * CT negative for acute changes * Initiate fall precautions. * Wound care per nursing staff. (5) Combined systolic and diastolic congestive heart failure: Code(s): I50.40 - Unspecified combined systolic (congestive) and diastolic (congestive) heart failure Status: Acute Assessment and Plan: * Continue cautious IV fluid rehydration. * Monitor volume status with daily weights and I/O. * cardiology consulted (6) Type 2 diabetes mellitus: Code(s): E11.9 - Type 2 diabetes mellitus without complications Status: Acute Assessment and Plan: * hemoglobin A1c today was 7.5%. * Continue basal insulin, sliding scale insulin, Accu-Cheks, and hypoglycemic protocol. (7) Hypertension: Code(s): I10 - Essential (primary) hypertension Status: Acute Assessment and Plan: * Blood pressures were reviewed and they are stable. * Monitor closely as some of his medications are on hold given the increasing renal function. (8) Diarrhea: Code(s): R19.7 - Diarrhea, unspecified Status: Acute Assessment and Plan: * Check stool cultures and C diff. * c. diff positive, started on Vancomycin * Supportive care. Subjective Date/time seen: 07/25/23 15:16 Interval history: Patient is cooperative for me this morning, although reportedly was difficult overnight. He calls out frequently. He was upset that we did not have his normal pain medication on formulary, but alternative was ordered. Will order PRN for sleep. He is in no acute stress this morning, but appears chronically ill. Discussed importance of letting us get a UA sample as I am concerned for UTI given elevated WBC on admission. He is agreeable today. Will continue to monitor, cardiology consulted and following recommendations for treatment of his afib. PT/OT ordered for eval and d/c planning as he came in due to fall. Review of Systems Review of Systems:
--- NOTE | 2023-07-25 15:16 | PM.IMPN ---
Progress Note: A&P Assessment and Plan (1) Atrial fibrillation with rapid ventricular response: Code(s): I48.91 - Unspecified atrial fibrillation Status: Acute Assessment and Plan: Cardiology consulted: Discontinue diltiazem drip in favor of amiodarone. Will administer bolus first followed by drip per protocol. Check echo Daily BMP. Want to keep K+ ~4,0 and Mag ~2.0 Continue Xarelto for stroke prophylaxis (2) Elevated troponin: Code(s): R79.89 - Other specified abnormal findings of blood chemistry Status: Acute Assessment and Plan: May be related to above. No complaints of chest pain. EKG shows possible anterior myocardial infarction of indeterminant age. troponins trend did not con't to elevate Echocardiogram ordered cardiology consulted (3) Renal failure: Code(s): N19 - Unspecified kidney failure Status: Acute Assessment and Plan: Creatinine is 1.70 on admission, now 1.30 . No recent labs to establish baseline. May have underlying chronic kidney disease though he was likely dehydrated from decreased oral intake an ongoing loose stools. Avoid nephrotoxic agents and renally dose all medications. Trend labs UA ordered, delayed due to chronic spencer change (4) Fall from ground level: Code(s): W18.30XA - Fall on same level, unspecified, initial encounter Status: Acute Assessment and Plan: Fall from ground level today with head trauma and several skin tears. CT negative for acute changes Initiate fall precautions. Wound care per nursing staff. (5) Combined systolic and diastolic congestive heart failure: Code(s): I50.40 - Unspecified combined systolic (congestive) and diastolic (congestive) heart failure Status: Acute Assessment and Plan: Continue cautious IV fluid rehydration. Monitor volume status with daily weights and I/O. cardiology consulted (6) Type 2 diabetes mellitus: Code(s): E11.9 - Type 2 diabetes mellitus without complications Status: Acute Assessment and Plan: hemoglobin A1c today was 7.5%. Continue basal insulin, sliding scale insulin, Accu-Cheks, and hypoglycemic protocol. (7) Hypertension: Code(s): I10 - Essential (primary) hypertension Status: Acute Assessment and Plan: Blood pressures were reviewed and they are stable. Monitor closely as some of his medications are on hold given the increasing renal function. (8) Diarrhea: Code(s): R19.7 - Diarrhea, unspecified Status: Acute Assessment and Plan: Check stool cultures and C diff. c. diff positive, started on Vancomycin Supportive care. Subjective Date/time seen: 07/25/23 15:16 Interval history: Patient is cooperative for me this morning, although reportedly was difficult overnight. He calls out frequently. He was upset that we did not have his normal pain medication on formulary, but alternative was ordered. Will order PRN for sleep. He is in no acute stress this morning, but appears chronically ill. Discussed importance of letting us get a UA sample as I am concerned for UTI given elevated WBC on admission. He is agreeable today. Will continue to monitor, cardiology consulted and following recommendations for treatment of his afib. PT/OT ordered for eval and d/c planning as he came in due to fall. Review of Systems Review of Systems: Twelve systems were reviewed and are negative except for as per HPI. Exam Narrative: General: Chronically ill-appearing male in the semi-Davis position in bed. Weight: 117 kg. BMI: 40.4. HEENT: Laceration over the right eyebrow has been repaired. PERRL, EOMI. Sclera anicteric. Tacky mucous membranes. Crowded oropharynx. Neck: Supple. No JVD. Respiratory: Respirations are nonlabored and lungs are clear to auscultation. Cardiovascular: Irregularly irregular rate and rhythm. Gastrointe
--- NOTE | 2023-07-25 16:15 | IVDEFINITY ---
Prior to administration of IV Definity the patient was educated on the risks and benefits of the imaging enhancing agent including potential adverse side effects. The patient verbalized understanding. Allergies were verified. No exclusion criteria were identified and at least one of the following inclusion criteria were met: 1) physician request, 2) patient technically difficult to image (per the [place] Society of Echocardiography guidelines of two or more segments not discernable within the apical view), or 3) questionable left ventricular function. ?
[2023-07-25 17:03] LABS: Glucose Point of Care 267 mg/dl (65-105)
[2023-07-25] MEDS: RIVAROXABAN 20 MG TABLET PO (18:40)
[2023-07-25] MEDS: traZODone HCL 50 MG TABLET PO (21:57)
--- NOTE | 2023-07-25 22:18 | PM.EVENT ---
Event Note Event Note Event Note: 07/25/2023 22:00 S: I received a call from the charge nurse requesting that I come evaluate the patient. He had several episodes of emesis, possibly bile verses coffee-ground emesis. The patient complains of generalized abdominal pain and nausea at the time my evaluation. He thinks he has a remote history of peptic ulcers. He has no known history of liver disease or esophageal varices. He has been having multiple episodes of diarrhea as he is C diff positive and there have been no reports of melena or bright red blood in the stool. Stat labs and KUB ordered and he was transferred to the ICU. O: Acutely ill-appearing male in the semi-Davis position in bed. He is pale and diaphoretic. He is sleepy and needs constant stimulation to stay arousable. Abdomen is distended and slightly firm with positive bowel sounds. He is tender to palpation percussion throughout the periumbilical region. No guarding or rebound tenderness. He is in atrial fibrillation with rates in the low 100s on amiodarone drip. Extremities are cool and stumps are mottled. Radial pulses are palpable. Dark coffee-ground emesis noted around the mouth and on the chest and abdomen. Blood pressures are dropping and he is hypoxic on a non-rebreather. A/P: 73-year-old male with type 2 diabetes mellitus, hypertension, combined systolic and diastolic congestive heart failure, paroxysmal atrial fibrillation, coronary artery disease, peripheral vascular disease, and other comorbidities admitted through the emergency department on 07/24/2023 after presenting after a fall. Found to have atrial fibrillation with rapid ventricular response for which he was started on amiodarone drip, elevated troponin, and acute kidney injury due to dehydration as well as C diff. 1. Shock: Likely due to a combination of factors including septic shock from C diff and hypovolemia from dehydration (he was not receiving IV fluids throughout the day despite them being ordered as they were apparently not compatible with the amiodarone drip) and possibly from blood loss as he has coffee-ground emesis. He remained hypotensive despite IV fluid boluses and a central line has been inserted. The time of this dictation he is on norepinephrine, vasopressin, and phenylephrine although the phenylephrine is being weaned. 2. Acute respiratory failure: Patient was intubated due to ongoing hematemesis, waxing and waning mentation, and increasing oxygen requirements. He was able to give verbal consent. He will be sedated with fentanyl and Versed. Vent management per water resources program director. 3. Hematemesis: The patient has had several episodes of coffee-ground emesis though some of it appeared to be bile as well. Gastroccult was positive. He has been started on a Protonix drip. Telephone Operator will be consulted. Trend hemoglobin hematocrit and transfuse if indicated. 4. C diff diarrhea: CT of the abdomen and pelvis ordered given increasing abdominal distension and septic shock. Increase p.o. vancomycin dose to 500 mg q.6 hours an add metronidazole 500 mg q.8 hours. 5. Electrolyte abnormalities: Sodium 127, potassium 5.2, chloride 89. Renal function is worsening due to shock and dehydration. Continue judicious IV fluid rehydration with close monitoring of volume status and electrolytes. Monitor strict I/O. 6. Transaminitis: AST and ALT are markedly elevated, presumably due to shock liver. CT scan pending. Critical Care Time Critical Care Time: Yes Total Critical Care Time: 50 Attestation: Due to a high probability of clinically significant, life threatening deterioration, the patient required my highest level of preparedness to intervene emergently and I personally spent this critical care time directly and personally managing the patient. This critical care time included obtaining a history; examining the patient; pulse oximetry; ordering and review of studies; arranging urgent treatment with development of a management plan;
[2023-07-25] MEDS: AMIODARONE 360 MG/D5W 200 ML 360 MG/200 ML BAG 16.67 MG IV CONT (22:54)
[2023-07-25 23:03] LABS: Hemoglobin 10.1 g/dL (14.0-18.0); Mean Corpuscular HGB Conc 29.7 g/dl (32-36); Mean Corpuscular Hemoglobin 24.9 pg (26-34); Mean Corpuscular Volume 83.7 fl (80-100); Mean Platelet Volume 9.7 fl (7.4-10.4); Platelet Count Result 339 k/mm3 (150-375); Red Blood Count 4.06 M/mm3 (4.6-6.20); Red Cell Distribution Width 19.6 % (11.5-14.5); White Blood Count 12.5 K/mm3 (4.5-10.0)
[2023-07-25 23:13] LABS: INR 2.5; Prothrombin Time 29.2 Seconds (11.1-14.7)
[2023-07-25 23:14] LABS: Partial Thromboplastin Time 47.4 SECONDS (22.3-36.8)
[2023-07-25 23:16] LABS: Lactic Acid Reflex 2.8 mmol/L (0.7-2.0)
[2023-07-25 23:18] LABS: Alkaline Phosphatase 176 U/L (38-126); Anion Gap 14 mmol/L (8-16); Bilirubin,Total 1.4 mg/dL (0.2-1.3); Blood Urea Nitrogen 45 mg/dL (9-20); Carbon Dioxide 24 mmol/L (22-30); Chloride 89 mmol/L (98-107); Estimated CRCL calculation 38 ml/min; Estimated Glomerular Filt Rate 33; Glucose 303 mg/dL (65-110); Potassium 5.2 mmol/L (3.4-5.0); Sodium 127 mmol/L (137-145)
[2023-07-25 23:33] LABS: Alanine Aminotransferase 1534 U/L (6-50)
[2023-07-25 23:40] LABS: Aspartate Amino Transferase 3423 U/L (17-59)
[2023-07-25 23:47] LABS: Fibrinogen 735 mg/dl (215-510)
[2023-07-25 23:57] LABS: D Dimer 2.48 ug/mL (<0.48)
[2023-07-26] VITALS (47 sets, daily range): BP systolic 53–140; BP diastolic 33–99; PULSE 52–117; RESP 18–100; TEMP 36.4–37.1; O2SAT 93–100; BMI 40.4
[2023-07-26] MEDS: NOREPINEPHRINE 8 MG/D5W 250 ML 8 MG/250 ML BAG 9.38 MG IV CONT (00:15)
[2023-07-26 00:30] LABS: Glucose Point of Care 337 mg/dl (65-105)
[2023-07-26] MEDS: FENTANYL 2,500MCG/NS250ML(*CRX 2,500 MCG/250 ML BAG IV CONT (00:30)
[2023-07-26] MEDS: MIDAZOLAM 100MG/NS 100ML(*CRX) 100 MG/100 ML BAG IV CONT (00:30)
[2023-07-26] MEDS: VASOPRESSIN INJ 100 UNITS in DEXTROSE 5% 95 ML IV CONT (00:45)
--- NOTE | 2023-07-26 01:06 | WPDPROCEDUR ---
Procedures Central Line Placement Right IJ: Central Line Date: 07/26/23 Central Line Time: 00:30 Performed Emergently - Given emergent patient condition, temporal constraints may have precluded informed consent.: Yes Time Out Performed: Yes Patient Position: trendelenburg Patient placed on monitor/pulse ox: Yes Provider Prep: mask, sterile gown, sterile gloves, Max. sterile barrier precautions, cap and hand hygiene with conventional soap/water or alcohol based hand rub Central line prep: 2% Chlorhexidine scrub Sterile US Technique with sterile gel/sterile probe covers: Yes Central line lumen inserted: triple English: 7 Length (cm): 16 Depth of Insertion (cm): 15 Post Procedure: sutured in place, good blood return, all ports aspirated, flushed, capped, transparent dressing, hemostatic product, antimicrobial product, securement product and aseptic technique maintained throughout procedure Post procedure x-ray: tip of catheter in good position and no pneumothorax seen Patient tolerated procedure: well
--- NOTE | 2023-07-26 01:16 | PM.EVENT ---
Event Note Event Note Event Note: Nursing staff and physician psychological assistant called as the patient was having coffee-ground emesis. The patient is a vasculopath and could not have central line placed in the femoral veins due to anatomy and large amount of stools given patient having active C diff. subsequently evaluate the patient for placement of right IJ. just prior to line placement patient's blood pressure had briefly stabilized with fluid bolus. But has was preparing for central line patient's blood pressures again dropped into the 70s. Patient was placed in Trendelenburg in position for the line. Second bolus was ordered. Despite the fluid bolus patient's blood pressures did drop again. Patient was receiving IV push phenylephrine to maintain blood pressures until line was placed. During the course the procedure the patient's blood pressures did drop transiently down to the 50s systolic. Pressures improved after pressors were initiated but had to be rapidly escalated upward. The patient was on 3 pressors with Levophed Frank-Synephrine and vasopressin 0 maximize for couple of hours. The patient was given stress dose steroids with hydrocortisone and bicarb push. Patient's blood pressures stabilized in pressors were weaned downward. Initial vent orders were provided with tidal volume 480 rate of 18 and PEEP of 5. Patient's have O2 was titrated down for oxygen saturations greater than 92. Amiodarone was placed on hold as the patient's heart rate improved after improved perfusion with pressor therapy. 1. Septic shock--will add Flagyl due to patient's acute change in condition and will adjust patient's oral vancomycin dosing to 500 mg per antibiotic stewardship guidelines. Patient was given bicarb push and stress dose steroids. 2. Acute hypoxic respiratory failure --patient is on sedation with fentanyl and Versed. Vent settings as discussed above. Repeat ABG ordered. Post intubation chest x-ray reviewed. 3. acute renal failure--pressor therapy as discussed. Continue IV fluid hydration. Monitor strict I&O's. Ghotra catheter in place for close monitoring. 4. Acute liver injury--due to septic shock and resulting in auto anticoagulation with developing coagulopathy. Xarelto on hold. Given patient's coffee-ground emesis will send gastric cold. The patient has already been placed on a Protonix drip. Type and screen has been ordered. Will monitor H&Hs. GI consult has been ordered. NG is in place and is draining. Patient had immediate return of 400 mL of coffee-ground appearing material. Will repeat lactic acid in a.m. 5. Worsening hyponatremia---will monitor electrolyte panel closely. Likely due to above factors. Continue to monitor. Continue normal saline. 6. Patient has type 2 diabetes glucoses are currently uncontrolled. Will continue patient's Lantus but will decrease dose given the now NPO. Will place patient on moderate sliding scale insulin with Accu-Cheks q.6 6 hours. Hypoglycemia protocol is available. 90 minute spent critical care activities Due to a high probability of clinically significant, life threatening deterioration, the patient required my highest level of preparedness to intervene emergently and I personally spent this critical care time directly and personally managing the patient. This critical care time included obtaining a history; examining the patient; pulse oximetry; ordering and review of studies; arranging urgent treatment with development of a management plan; evaluation of patient's response to treatment; frequent reassessment; and discussions with other providers. It was exclusive of separately billable procedures and treating other patients and teaching time. Please see Assessment and Plan section and the rest of the note for further information on patient assessment and treatment.
[2023-07-26 01:49] LABS: Gastric Negative Control Negative; Gastric Positive Control Positive; Occult Blood Gastric Fluid Positive; pH Gastric Fluid 2 (1-8)
[2023-07-26] MEDS: metroNIDAZOLE 500 MG/ISO 100ML 500 MG/100 ML BAG 100 MG IVPB ×3 (01:54→21:36)
[2023-07-26] MEDS: SODIUM BICARBONATE 8.4% 50 MEQ/50 ML SYRINGE IV PUSH (01:54)
[2023-07-26 02:01] LABS: Reflex Lactic Acid Yes or No Add Lactic
--- NOTE | 2023-07-26 02:21 | WPDPROCEDUR ---
Procedures Intubation Intubation Date: 07/25/23 Intubation Time: 23:30 Consent: Patient gave verbal consent. Sedative: etomidate Mg given: 30 Paralytic: succinylcholine Mg given: 150 Laryngoscope: fiber optic video scope Assist device used: fiber optic device ET tube size: 7.5 Tube secured depth (cm): 25 Tube secured location: lips Tube placement confirmation: visualized tube passing through cords, equal breath sounds bilaterally, no breath sounds over epigastrium and confirmation by capnometry Patient tolerated procedure: well Intubation complications: none Additional comments: Patient was preoxygenated prior to intubation an SpO2 remained in the mid upper 90s throughout the procedure. He was intubated successfully and atraumatically on 1st attempt. He was hypotensive prior to intubation received a total of 200 mcg of phenylephrine prior to RSI.
--- NOTE | 2023-07-26 02:58 | PC.NURSE ---
Patient began vomiting coffee ground appearing emesis around 2200 shortly after swallowing PO meds. [facility] called and assessed patient at bedside. Patient's BP and LOC decreasing. Transferred patient to ICU
[2023-07-26 03:16] LABS: Hematocrit 32.7 % (42.0-52.0); Hemoglobin 9.8 g/dL (14.0-18.0)
[2023-07-26 03:27] LABS: Lactic Acid 4.6 mmol/L (0.7-2.0)
[2023-07-26] MEDS: HYDROCORTISONE SODIUM SUCCINATE 100 MG/2 ML VIAL IV PUSH ×3 (04:00→21:35)
[2023-07-26] MEDS: PANTOPRAZOLE SODIUM IV 80 MG in SODIUM CHLORIDE 0.9% IV 500 ML 50 MG IV CONT ×2 (05:04→15:05)
[2023-07-26] MEDS: RAPID SEQUENCE INTUBATION KIT 1 EACH (05:05)
[2023-07-26] MEDS: SODIUM CHLORIDE 0.9% IV 1,000 ML 100 ML IV CONT ×2 (05:17→20:19)
[2023-07-26 05:42] LABS: Alveolar/Arterial O2 Gradient 198.2 mmHg; Base Excess ABG 4.7 mEq/l (+/-2.0); Fractional Inspired Oxygen 50 %; HCO3 ABG 26.4 mEq/l (22.0-26.0); Oxygen Content ABG 17.4 %vol (16.0-22.0); Oxygen Saturation ABG 98.9 % (95.0-100.0); Oxyhemoglobin 97.4 % THb (90.0-100.0); PCO2 ABG 30.2 mmHg (35.0-45.0); PO2 ABG 124.3 mmHg (80.0-100.0); PO2 FiO2 Ratio Arterial Blood 2.49 %; Total Hemoglobin 12.6 g/dL (12.0-18.0)
[2023-07-26 05:43] LABS: Device VENTILATOR; Modified Allen's Test Pass; Site Drawn LEFT RADIAL; pH ABG 7.559 (7.350-7.450)
[2023-07-26 05:44] LABS: Arterial Blood Gas PEEP 5 cmH2O; Arterial Blood Gas Tidal Volume 480 ml; Arterial Blood Gas Vent Mode CMV; Arterial Blood Gas Ventilator rate 18 /MIN
[2023-07-26 06:17] LABS: Basophils Percent Auto 0.1 % (0.2-1.2); Hematocrit 29.9 % (42.0-52.0); Hemoglobin 9.4 g/dL (14.0-18.0); Immature Granulocyte Absolute 0.11 K/mm3 (0.00-0.031); Immature Granulocyte Percent A 0.9 % (0-0.5); Lymphocytes Absolute Auto 0.33 K/mm3 (0.9-3.2); Lymphocytes Percent Auto 2.6 % (18.3-44.2); Mean Corpuscular HGB Conc 31.4 g/dl (32-36); Mean Corpuscular Hemoglobin 25.1 pg (26-34); Mean Corpuscular Volume 79.7 fl (80-100); Mean Platelet Volume 9.2 fl (7.4-10.4); Monocytes Percent Auto 8.1 % (2.6-8.5); Neutrophils Absolute Auto 11.1 K/mm3 (1.3-6.7); Neutrophils Percent Auto 88.3 % (45.5-73.1); Platelet Count Result 310 k/mm3 (150-375); Red Blood Count 3.75 M/mm3 (4.6-6.20); Red Cell Distribution Width 19.3 % (11.5-14.5); White Blood Count 12.5 K/mm3 (4.5-10.0)
[2023-07-26] MEDS: INSULIN ASPART (*BKC) 100 UNITS/ML SUB-Q ×3 (06:24→18:11)
[2023-07-26 06:28] LABS: INR 3.4; Prothrombin Time 36.8 Seconds (11.1-14.7)
[2023-07-26 06:29] LABS: Partial Thromboplastin Time 42.8 SECONDS (22.3-36.8)
[2023-07-26] MEDS: VANCOMYCIN ORAL 500 MG/10 ML SYRUP PO ×3 (06:33→18:08)
[2023-07-26 06:35] LABS: Glucose Point of Care 323 mg/dl (65-105)
[2023-07-26 06:42] LABS: Albumin Level 3.1 g/dL (3.5-5.1); Carbon Dioxide 27 mmol/L (22-30); Estimated CRCL calculation 34 ml/min; Estimated Glomerular Filt Rate 30
[2023-07-26 07:11] LABS: Alkaline Phosphatase 157 U/L (38-126); Anion Gap 10 mmol/L (8-16); Bilirubin,Total 1.5 mg/dL (0.2-1.3); Blood Urea Nitrogen 52 mg/dL (9-20); Calcium 8.1 mg/dL (8.4-10.2); Chloride 90 mmol/L (98-107); Glucose 335 mg/dL (65-110); Phosphorus 3.6 mg/dL (2.5-4.5); Potassium 4.9 mmol/L (3.4-5.0); Sodium 127 mmol/L (137-145)
[2023-07-26 08:33] LABS: Alanine Aminotransferase 2784 U/L (6-50); Aspartate Amino Transferase 6331 U/L (17-59)
[2023-07-26 08:37] LABS: Magnesium 2.5 mg/dL (1.6-2.3)
[2023-07-26 08:38] LABS: Fibrinogen 565 mg/dl (215-510)
[2023-07-26 08:42] LABS: D Dimer 3.16 ug/mL (<0.48)
[2023-07-26 08:47] LABS: Cortisol Random > 123.00 ug/dL
--- NOTE | 2023-07-26 10:47 | PCOTNOTE ---
Patient is on bedrest and intubated at this time. Will hold OT order and check back tomorrow.
--- NOTE | 2023-07-26 10:51 | PCPTNOTE ---
Pt currently on bedrest/intubated at this time. Please re-order therapy when pt is appropriate.
[2023-07-26] MEDS: INSULIN GLARGINE (*BKC) 100 UNITS/ML 50 UNITS SUB-Q (10:59)
--- NOTE | 2023-07-26 10:59 | PM.PNCARD ---
Progress Note: A&P Assessment and Plan (1) Atrial fibrillation with rapid ventricular response: Code(s): I48.91 - Unspecified atrial fibrillation Status: Acute Assessment and Plan: New diagnosis atrial fibrillation, chronicity is unknown. Placed on amiodarone and metoprolol yesterday, both of which are on hold currently because of hypotension. He remains in atrial fibrillation but is reasonably rate controlled Can resume amiodarone drip if he has RVR Xarelto being held because of hematemesis Echo pending Continue telemetry Daily BMP. Want to keep K+ ~4,0 and Mag ~2.0 (2) Combined systolic and diastolic congestive heart failure: Code(s): I50.40 - Unspecified combined systolic (congestive) and diastolic (congestive) heart failure Status: Acute Assessment and Plan: He has abdominal edema and some edema in R lower extremity. Small pleural effusions on CXR. NTpro BNP 7590. Furosemide on hold because of CHARLIE, hypovolemic shock Daily weight Strict intake and output (3) Elevated troponin: Code(s): R79.89 - Other specified abnormal findings of blood chemistry Status: Acute Assessment and Plan: Troponin levels 0.330, 0.520, and 0.492. He denies chest pain. Likely demand ischemia secondary to volume overload, tachycardia and known underlying CAD rather than ACS. He did undergo an angiogram in August of 2021 to assess graft patentcy and was found to have patent grafts to the LAD, diag/OM, and PDA and was felt to be optimally revascularized. No plan to undergo any type of ischemic evaluation at this time. (4) Coronary artery disease: Code(s): I25.10 - Atherosclerotic heart disease of [place] coronary artery without angina pectoris Status: Acute Assessment and Plan: History of severe multivessel CAD s/p CABG in 2016. Stable. Continue statin. ASA on hold because of hematemesis Subjective Date/time seen: 07/26/23 10:59 Interval history: Cardiology follow up for atrial fibrillation Was transferred to the ICU overnight following episode of coffee-ground emesis and subsequent hypotension requiring vasopressor support. He is now mechanically ventilated. He remains in atrial fibrillation with controlled rate. Amiodarone has been discontinued as well as metoprolol. Review of Systems Review of Systems: All systems reviewed & are unremarkable except as noted in HPI and below ROS unobtainable: Yes unobtainable due to endotracheal tube and unobtainable due to medical condition Exam Const: General: comfortable, no acute distress and ill appearing Orientation/consciousness: No patient oriented x3 Other: Intubated and sedated HENMT: Head: abnormal to inspection Other: Forehead laceration noted OETT in place Eyes: General: appearance normal, both eyes and all related structures Pupils: Equal, round and reactive pupils present Neck: Neck: normal visual inspection, supple and no JVD Carotids: normal carotid upstroke Resp: Auscultation: not clear to auscultation bilaterally and rales Other: Mechanically ventilated Cardio: Rate: regular rate Rhythm: abnormal rhythm irregularly irregular Heart sounds: S1 normal heart sound present, S2 normal heart sound present and no murmurs GI: Inspection: distended Auscultation: normal bowel sounds Urinary Catheter: Urinary Catheter: patent and draining Skin: General skin exam: normal color Neuro: General: No patient oriented x3 Cranial nerves: Yes Equal, round and reactive pupils present Extrem: General: abnormal to inspection and edema (edema R thigh) Other: bilateral AKA Psych: Appearance: grossly normal Mental Status: mental status grossly abnormal Other: Sedated Objective Data Vital Signs Vital Signs: Vital Signs - 24 hr 07/25/23 12:00 07/25/23 14:15 07/25/23 16:00 Temperature 36.0 C L 36.3 C L Pulse Rate 65 126 H 128 H Respiratory Rate 20 22 H
--- NOTE | 2023-07-26 11:02 | WPDGICN ---
Assessment and Plan Assessment and plan (1) Hematemesis: Code(s): K92.0 - Hematemesis Status: Acute Assessment and Plan: The nasogastric tube canister shows dark red blood. Hemoglobin has admission has dropped to 9.4. He is chronically anemic and the current hemoglobin probably does not reflect the full amount of his blood loss. INR today is elevated at 3.4. (2) C. difficile colitis: Code(s): A04.72 - Enterocolitis due to Clostridium difficile, not specified as recurrent Status: Acute Assessment and Plan: This was diagnosed yesterday. He has been started on vancomycin 500 mg per NG tube q.6 hours. (3) Elevated troponin: Code(s): R79.89 - Other specified abnormal findings of blood chemistry Status: Acute Assessment and Plan: This is likely multifactorial. Probably related to atrial fibrillation and other events (4) Atrial fibrillation with rapid ventricular response: Code(s): I48.91 - Unspecified atrial fibrillation Status: Acute Assessment and Plan: Rate has been controlled. Xarelto has been held as of yesterday. Plan Regarding his upper gastrointestinal bleeding, Xarelto has been held he has been started on PPI. At this point there is nothing else to do however endoscopy would be appropriate when the anticoagulant has worn off and it would be safe to perform any necessary maneuvers. I would switch him to oral Dificid when NG tube is out. Will continue to follow him GI Consult Note Consult date/time: 07/26/23 11:02 HPI: Brian Iyer is a 73 year old male who is currently sedated and intubated in intensive care due to acute respiratory distress. He was admitted 2 days ago with a history of having fallen after he got out of a chair and he had sustained some lacerations. In the emergency room he was found have atrial fibrillation with rapid ventricular response. This responded to a diltiazem drip. It also complained of frequent loose stools and ultimately a stool culture was found to be positive for C diff. The patient then was seen by on-call hospitalist because of vomiting what appeared to be coffee-ground material and complaints of generalized abdominal pain. He was also diaphoretic. A central line was subsequently placed because he was hypotensive. Following that he was intubated due to altered mental status, persistent hematemesis and dropping oxygen levels. Today I was called to see him because of dark blood and coffee-ground material in his NG tube. He is chronically on Xarelto and in fact INR today is 3.4. His hemoglobin has dropped somewhat from 10.5-9.4. I suspect however that the initial level is innaccurate due to hemoconcentration, dehydration. Review of Systems Review of Systems: All systems reviewed & are unremarkable except as noted in HPI and below PMFSH Past Medical History Medical History Benign prostatic hyperplasia Chronic anemia Combined systolic and diastolic congestive heart failure Previous echocardiogram showed diastolic dysfunction with mild LV systolic dysfunction with EF of 45 to 50%. Coronary artery disease Hyperlipidemia Hypertension Paroxysmal atrial fibrillation Pericardial effusion Status post pericardial window. Peripheral neuropathy Peripheral vascular disease Type 2 diabetes mellitus Surgical History Surgical History History of left below knee amputation History of right above knee amputation History of total right hip arthroplasty (2011) History of transurethral resection of prostate (07/2017) Status post coronary artery bypass grafts x 5 (06/2016) Status post creation of pericardial window (06/2016) Family History Family History Mother Acute myocardial infarction Coronary artery disease Diabetes mellitus Father Colon cancer
[2023-07-26] MEDS: MINERAL OIL/WHITE PETROLATUM OINTMENT 1 APPLIC EACH EYE ×2 (11:04→20:19)
[2023-07-26 11:22] LABS: Lactic Acid Reflex 1.6 mmol/L (0.7-2.0)
[2023-07-26 11:24] LABS: Appearance Urine Cloudy (Clear); Bilirubin Urine 2+ (Negative); Blood Urine 3+ (Negative); Color Urine Dark Yellow (Yellow); Glucose Urine UA Trace mg/dL (Negative); Ketones Urine Trace mg/dL (Negative); Leukocyte Esterase Ur 2+ LEU/UL (Negative); Nitrate Urine Negative (Negative); Protein Urine 3+ mg/dL (Negative); Specific Grav Ur 1.021 (1.001-1.035)
--- NOTE | 2023-07-26 11:25 | WPDCNINT ---
Assessment and Plan Assessment and plan (1) Acute respiratory failure: Code(s): J96.00 - Acute respiratory failure, unspecified whether with hypoxia or hypercapnia Status: Acute Assessment and Plan: Patient was intubated as he was having multiple episodes of hematemesis and coffee-ground emesis. Patient was intubated for waxing and waning mentation increasing oxygen requirements 07/25: Intubated -continue CMV mode of ventilation, low tidal volume strategy, peep of 5. Being FiO2 to maintain O2 sats greater than 92% -start bronchodilators -sedated with fentanyl and Versed infusion, maintain RASS of 0 to -2, daily sedation vacation (2) Shock: Code(s): R57.9 - Shock, unspecified Status: Acute Assessment and Plan: Patient was hypotensive despite receiving multiple fluid boluses, central line was inserted on 07/25, patient was initially started on Frank-Synephrine, then Levophed and vasopressin were added -07/26: Patient has been off Levophed and vasopressin, remains on Frank-Synephrine which is currently being weaned -maintain MAP > 70 mmHg for adequate end organ perfusion -lactic acid was 4.6, has normalized to 1.6 this morning -continue p.o. vancomycin and IV Flagyl for C diff (07/25) -urine output has been low, creatinine is worsening, continue to monitor -significant elevated LFTs likely related to shock liver, will continue to trend (3) C. difficile colitis: Code(s): A04.72 - Enterocolitis due to Clostridium difficile, not specified as recurrent Status: Acute Assessment and Plan: Patient has been having diarrhea, C diff was positive -patient currently on vancomycin 500 per NG tube -also on metronidazole 500 IV q. 8 hours -GI following the patient (4) Hematemesis: Code(s): K92.0 - Hematemesis Status: Acute Assessment and Plan: Hematemesis likely related to GI bleed, NG canister shows dark red blood -appreciate GI evaluation and recommendation -continue to hold Xarelto -no urgency of EGD at this time (5) Renal failure: Code(s): N19 - Unspecified kidney failure Status: Acute Assessment and Plan: Acute kidney injury likely related to severe shock, hemorrhagic versus septic -adequately fluid-resuscitated -continue maintenance IV fluids -low urine output and increase creatinine -continue to monitor renal function, electrolytes and urine output Will check renal ultrasound -check urine lytes, urine eosinophils, CK level (6) Fall from ground level: Code(s): W18.30XA - Fall on same level, unspecified, initial encounter Status: Acute Assessment and Plan: CT scan of the brain on admission did not show any acute intracranial process or fractures, chronic age-related mild diffuse volume loss and chronic small-vessel ischemic disease (7) Chronic anemia: Code(s): D64.9 - Anemia, unspecified Status: Chronic Assessment and Plan: Patient has a history of chronic anemia -no more so likely related to GI bleed/hematemesis/coffee-ground emesis -currently on Protonix infusion (8) Atrial fibrillation with rapid ventricular response: Code(s): I48.91 - Unspecified atrial fibrillation Status: Acute Assessment and Plan: Patient also has history of paroxysmal AFib, was in AFib RVR in the ER and was started on Cardizem infusion which is currently off -currently and AFib, rate controlled -, continue to monitor (9) Elevated LFTs: Code(s): R79.89 - Other specified abnormal findings of blood chemistry Status: Acute Assessment and Plan: Elevated LFTs likely related to shock liver -will obtain hepatitis panel and right upper quadrant ultrasound to evaluate liver parenchyma Plan DVT prophylaxis: No chemoprophylaxis due to hematemesis, patient has right AKA and left BKA so no SCDs Stress ulcer prophylaxis: Protonix infusion Nutrition: NPO Code Status: Full code Critical Care Time Spent:
[2023-07-26 11:26] LABS: Add Urine Microscopic? YES
[2023-07-26 11:27] LABS: Bacteria Urine 2+ /hpf; RBC Urine 21-50 /hpf (0-2); Squamous Epithelial Cell Urine Few /hpf (Few); WBC Urine 31-50 /hpf
[2023-07-26] MEDS: ALBUMIN HUMAN 25% 25 GM/100 ML 100 ML IVPB ×3 (12:33→21:36)
[2023-07-26 12:56] LABS: Glucose Point of Care 331 mg/dl (65-105)
[2023-07-26 13:19] LABS: Hepatitis B Surface Antigen Negative (Negative)
[2023-07-26 13:25] LABS: HAV RESULT Negative (Negative); Hepatitis B Core IgM Result Negative (Negative)
[2023-07-26 13:36] LABS: Creatine Kinase 344 U/L (55-170); Hepatitis C Virus Antibody Negative (Negative)
[2023-07-26] MEDS: IPRATROPIUM BR 0.02% INH SOLN 0.5 MG/2.5 ML VIAL INHALATION ×2 (15:00→20:22)
[2023-07-26] MEDS: LEVALBUTEROL NEB 1.25 MG/3 ML 0.63 MG INHALATION ×2 (15:00→20:22)
[2023-07-26 16:59] LABS: Creatinine Urine 108.1 mg/dL
[2023-07-26 17:02] LABS: Potassium Urine Random 85.3 meq/L; Sodium Urine Random 13 meq/L
[2023-07-26] MEDS: CENTRAL LINE FLUSH 10 ML IV PUSH ×2 (17:16→21:37)
[2023-07-26 17:38] LABS: Eosinophil Urine None Seen % (None Seen)
[2023-07-26 17:39] LABS: Urine Eos QC 2nd Tech Confirmed
[2023-07-26 18:47] LABS: Glucose Point of Care 294 mg/dl (65-105)
[2023-07-27] VITALS (46 sets, daily range): BP systolic 80–153; BP diastolic 51–99; PULSE 91–140; RESP 18–20; TEMP 36.4–37; O2SAT 99–100
[2023-07-27] MEDS: INSULIN ASPART (*BKC) 100 UNITS/ML SUB-Q ×5 (00:14→21:19)
[2023-07-27] MEDS: VANCOMYCIN ORAL 500 MG/10 ML SYRUP PO ×4 (00:15→18:02)
[2023-07-27 00:28] LABS: Glucose Point of Care 264 mg/dl (65-105)
[2023-07-27] MEDS: IPRATROPIUM BR 0.02% INH SOLN 0.5 MG/2.5 ML VIAL INHALATION ×4 (01:34→21:07)
[2023-07-27] MEDS: LEVALBUTEROL NEB 1.25 MG/3 ML 0.63 MG INHALATION ×4 (01:35→21:07)
[2023-07-27] MEDS: PANTOPRAZOLE SODIUM IV 80 MG in SODIUM CHLORIDE 0.9% IV 500 ML 50 MG IV CONT ×3 (01:57→22:40)
[2023-07-27] MEDS: ALBUMIN HUMAN 25% 25 GM/100 ML 100 ML IVPB (03:53)
[2023-07-27 05:10] LABS: Alveolar/Arterial O2 Gradient 111.6 mmHg; Base Excess ABG -0.7 mEq/l (+/-2.0); Carboxyhemoglobin 0.2 % THb (0-2.0); Fractional Inspired Oxygen 30 %; HCO3 ABG 21.3 mEq/l (22.0-26.0); Methemoglobin ABG 0.3 %THb (0-1.5); Oxygen Content ABG 12.6 %vol (16.0-22.0); Oxygen Saturation ABG 96.2 % (95.0-100.0); Oxyhemoglobin 92.6 % THb (90.0-100.0); PCO2 ABG 26.1 mmHg (35.0-45.0); PO2 ABG 71.6 mmHg (80.0-100.0); PO2 FiO2 Ratio Arterial Blood 2.39 %; Reduced Hemoglobin 6.9 %THb (0-5.0); Total Hemoglobin 9.6 g/dL (12.0-18.0)
[2023-07-27] MEDS: HYDROCORTISONE SODIUM SUCCINATE 100 MG/2 ML VIAL IV PUSH ×3 (05:11→21:21)
[2023-07-27] MEDS: metroNIDAZOLE 500 MG/ISO 100ML 500 MG/100 ML BAG 100 MG IVPB (05:11)
[2023-07-27 05:12] LABS: Device VENTILATOR; Modified Allen's Test Pass; Site Drawn LEFT RADIAL; pH ABG 7.529 (7.350-7.450)
[2023-07-27 05:13] LABS: Arterial Blood Gas PEEP 5 cmH2O; Arterial Blood Gas Vent Mode CMV; Arterial Blood Gas Ventilator rate 18 /MIN
[2023-07-27 05:14] LABS: Arterial Blood Gas Tidal Volume 480 ml
[2023-07-27] MEDS: CENTRAL LINE FLUSH 10 ML IV PUSH ×3 (05:14→21:23)
[2023-07-27 05:31] LABS: Basophils Percent Auto 0.1 % (0.2-1.2); Hematocrit 25.6 % (42.0-52.0); Hemoglobin 8.2 g/dL (14.0-18.0); Immature Granulocyte Absolute 0.08 K/mm3 (0.00-0.031); Immature Granulocyte Percent A 0.7 % (0-0.5); Lymphocytes Absolute Auto 0.32 K/mm3 (0.9-3.2); Lymphocytes Percent Auto 2.9 % (18.3-44.2); Mean Corpuscular Hemoglobin 25.3 pg (26-34); Mean Platelet Volume 9.7 fl (7.4-10.4); Monocytes Absolute Auto 0.5 K/mm3 (0.1-0.6); Monocytes Percent Auto 4.9 % (2.6-8.5); Neutrophils Absolute Auto 9.9 K/mm3 (1.3-6.7); Neutrophils Percent Auto 91.4 % (45.5-73.1); Platelet Count Result 237 k/mm3 (150-375); Red Blood Count 3.24 M/mm3 (4.6-6.20); Red Cell Distribution Width 19.5 % (11.5-14.5); White Blood Count 10.9 K/mm3 (4.5-10.0)
[2023-07-27 05:41] LABS: Prothrombin Time 33.1 Seconds (11.1-14.7)
[2023-07-27 05:46] LABS: Albumin Level 3.7 g/dL (3.5-5.1); Alkaline Phosphatase 139 U/L (38-126); Anion Gap 12 mmol/L (8-16); Bilirubin,Total 1.2 mg/dL (0.2-1.3); Blood Urea Nitrogen 65 mg/dL (9-20); Calcium 7.9 mg/dL (8.4-10.2); Carbon Dioxide 23 mmol/L (22-30); Chloride 93 mmol/L (98-107); Estimated CRCL calculation 28 ml/min; Estimated Glomerular Filt Rate 22; Glucose 268 mg/dL (65-110); Magnesium 2.7 mg/dL (1.6-2.3); Phosphorus 3.5 mg/dL (2.5-4.5); Sodium 128 mmol/L (137-145)
[2023-07-27 05:59] LABS: Glucose Point of Care 262 mg/dl (65-105)
[2023-07-27 06:03] LABS: Alanine Aminotransferase 2199 U/L (6-50)
[2023-07-27 06:22] LABS: Lactic Acid Reflex 1.5 mmol/L (0.7-2.0)
[2023-07-27 06:30] LABS: Platelet Estimate Adequate (Adequate)
[2023-07-27 06:31] LABS: Burr Cells 1+ (NORMAL); Ovalocytes 1+ (NORMAL); Poikilocytosis 2+ (NORMAL); Schistocytes None Seen (NORMAL)
[2023-07-27 06:52] LABS: Aspartate Amino Transferase 3518 U/L (17-59)
[2023-07-27] MEDS: INSULIN GLARGINE (*BKC) 100 UNITS/ML 50 UNITS SUB-Q (08:15)
[2023-07-27] MEDS: MINERAL OIL/WHITE PETROLATUM OINTMENT 1 APPLIC EACH EYE ×2 (08:18→21:21)
[2023-07-27] MEDS: SODIUM CHLORIDE 0.9% IV 1,000 ML 100 ML IV CONT (08:20)
[2023-07-27 09:00] LABS: Glucose Point of Care 270 mg/dl (65-105)
--- NOTE | 2023-07-27 10:30 | PC.NURSE ---
Pt's daughter at bedside. She reported taking off pt's restraint the previous night to allow him to write something. He apparently tried to reach toward his face and ET tube and the family had to forcibly return hand to the restraint. We discussed how important it is to keep restraints in place so that nothing gets pulled. Daughter verbalizes understanding
[2023-07-27] MEDS: PHYTONADIONE INJ 10 MG/ML AMP IM (10:46)
--- NOTE | 2023-07-27 11:12 | WPDINTPN ---
Progress Note: A&P Assessment and Plan (1) Acute respiratory failure: Code(s): J96.00 - Acute respiratory failure, unspecified whether with hypoxia or hypercapnia Status: Acute Assessment and Plan: Patient was intubated as he was having multiple episodes of hematemesis and coffee-ground emesis. Patient was intubated for waxing and waning mentation increasing oxygen requirements 07/25: Intubated Chest x-ray and ABG reviewed Decrease tidal volume to 420 Sedation holiday and evaluate for weaning trial -continue bronchodilators -sedated with fentanyl and Versed infusion, maintain RASS of 0 to -2, daily sedation vacation (2) Shock: Code(s): R57.9 - Shock, unspecified Status: Acute Assessment and Plan: Patient was hypotensive despite receiving multiple fluid boluses, central line was inserted on 07/25, patient was initially started on Frank-Synephrine, then Levophed and vasopressin were added -07/26: Patient has been off vasopressors this morning -lactic acid was 4.6, has normalized to 1.6 this morning Antibiotics as below -significant elevated LFTs likely related to shock liver, will continue to trend (3) C. difficile colitis: Code(s): A04.72 - Enterocolitis due to Clostridium difficile, not specified as recurrent Status: Acute Assessment and Plan: Patient has been having diarrhea, C diff was positive -patient currently on vancomycin 500 per NG tube -overnight patient had only 1 bowel movement which was solid. I continue per tube vancomycin but discontinue IV Flagyl -GI following the patient (4) Hematemesis: Code(s): K92.0 - Hematemesis Status: Acute Assessment and Plan: Hematemesis likely related to GI bleed, NG canister shows dark red blood -patient seen by GI. Discuss with Dr. Fernandez. He recommends INR below 2 prior to EGD -Xarelto is on hold -PPI infusion --monitor hemoglobin and transfuse as needed (5) Renal failure: Code(s): N19 - Unspecified kidney failure Status: Acute Assessment and Plan: Acute kidney injury likely related to severe shock, hemorrhagic versus septic -adequately fluid-resuscitated. hold further IV fluids -renal ultrasound unremarkable -low urine output and increase creatinine -CK 344 -continue to monitor renal function, electrolytes and urine output (6) Fall from ground level: Code(s): W18.30XA - Fall on same level, unspecified, initial encounter Status: Acute Assessment and Plan: CT scan of the brain on admission did not show any acute intracranial process or fractures, chronic age-related mild diffuse volume loss and chronic small-vessel ischemic disease (7) Chronic anemia: Code(s): D64.9 - Anemia, unspecified Status: Chronic Assessment and Plan: Patient has a history of chronic anemia -no more so likely related to GI bleed/hematemesis/coffee-ground emesis -currently on Protonix infusion (8) Atrial fibrillation with rapid ventricular response: Code(s): I48.91 - Unspecified atrial fibrillation Status: Acute Assessment and Plan: Patient also has history of paroxysmal AFib, was in AFib RVR in the ER and was started on Cardizem infusion which is currently off -currently in AFib but rate controlled (9) Elevated LFTs: Code(s): R79.89 - Other specified abnormal findings of blood chemistry Status: Acute Assessment and Plan: Elevated LFTs likely related to shock liver Negative hepatitis panel and right upper quadrant ultrasound showed [place] gallbladder sludge. Gallbladder wall thickening. Small volume pericholecystic and right upper quadrant fluid. (10) Coagulopathy: Code(s): D68.9 - Coagulation defect, unspecified Status: Acute Assessment and Plan: Patient was on Xarelto but INR has worsened this appears likely secondary to DIC from sepsis and shock Will give 10 mg of vitamin K In light off GI bleeding will give patient 2
--- NOTE | 2023-07-27 11:14 | PCNFU ---
Addendum entered by Vianey Fuentes, RD, LDN 07/27/23 13:16: Recommend adding Banatrol Plus BID for stool bulking due to CDiff +. Original Note: Nutrition Follow-Up Complete: Inadequate Oral Intake as related to mechanical ventilation as evidenced by NPO. Goal: Meet estimated nutritional needs. patient will continue current goal. Pt current nutrition is NPO. Last recorded weight is 124.1 kg, up from 117 kg on admit. Bowel Motility:+Bm reported 07/26 Labs Reviewed:Glu 268, BUN 65, Cr 2.8,Na 128 Meds Noted:Fentanyl, Versed, Vancomycin, Lantus Skin: WNL Additional Notes:Patient remains on mechanical vent. Tube feedings on hold for possible testing today. MD ordered Glucerna 1.2 at 20 ml/hr. Discussed formula change with Blockers Skiver today. Recommended Vital AF 1.2 at 20 ml/hr 2/2 to increased protein needs due to mechanical ventilator. If patient remains on Glucerna 1.2 recommend goal rate at 70 ml/hr with Protein Modulars of Prosource BID providing 2018 kcals/132 gms protein/1240 ml water. Flush 30 ml q 4 hours. Will monitor weight, labs, meds,skin, diet order daily in ICU rounds and reassessing every Tuesday and Tuesday.
[2023-07-27 11:57] LABS: Glucose Point of Care 264 mg/dl (65-105)
[2023-07-27] MEDS: MIDAZOLAM 100MG/NS 100ML(*CRX) 100 MG/100 ML BAG IV CONT (12:00)
[2023-07-27] MEDS: FENTANYL 2,500MCG/NS250ML(*CRX 2,500 MCG/250 ML BAG IV CONT (12:00)
--- NOTE | 2023-07-27 13:15 | PM.PNCARD ---
Progress Note: A&P Assessment and Plan (1) Atrial fibrillation with rapid ventricular response: Code(s): I48.91 - Unspecified atrial fibrillation Status: Acute Assessment and Plan: New diagnosis atrial fibrillation, chronicity is unknown. He remains in atrial fibrillation but is reasonably rate controlled on no particular medications. Can resume amiodarone drip if he has RVR Xarelto being held because of hematemesis Continue telemetry Daily BMP. Want to keep K+ ~4,0 and Mag ~2.0 When patient is off sedation his heart rate may increase and we can institute a beta-kiley. (2) Combined systolic and diastolic congestive heart failure: Code(s): I50.40 - Unspecified combined systolic (congestive) and diastolic (congestive) heart failure Status: Acute Assessment and Plan: Worsen cardiomyopathy, EF now 25-30%. He has abdominal edema and some edema in R lower extremity. Small pleural effusions on CXR. NTpro BNP 7590. Furosemide on hold because of CHARLIE, hypovolemic shock Daily weight Strict intake and output After recovery will start guideline directed medical therapy for cardiomyopathy and CHF. (3) Elevated troponin: Code(s): R79.89 - Other specified abnormal findings of blood chemistry Status: Acute Assessment and Plan: Troponin levels 0.330, 0.520, and 0.492. He denied chest pain. Likely demand ischemia secondary to volume overload, tachycardia and known underlying CAD rather than ACS. He did undergo an angiogram in August of 2021 to assess graft patentcy and was found to have patent grafts to the LAD, diag/OM, and PDA and was felt to be optimally revascularized. No plan to undergo any type of ischemic evaluation at this time. (4) Coronary artery disease: Code(s): I25.10 - Atherosclerotic heart disease of [place] coronary artery without angina pectoris Status: Acute Assessment and Plan: History of severe multivessel CAD s/p CABG in 2016. Stable. Continue statin. ASA on hold because of hematemesis (5) Acute respiratory failure: Code(s): J96.00 - Acute respiratory failure, unspecified whether with hypoxia or hypercapnia Status: Acute Assessment and Plan: Acute respiratory failure on vent, shock, pressors weaned off, shock liver, acute kidney injury, GI bleed, coagulopathy, gram-positive bacteremia noted in 1 blood culture, all followed by in home nanny. Subjective Date/time seen: 07/27/23 13:15 Interval history: Cardiology follow up for atrial fibrillation. H/O CAD, CABG, systolic and diastolic CHF. Echo this adm shows EF 25-30%., severe pulm HTN, RV hypokinesis. Acute UGI bleed, shock and resp failure 07/25/2023. Treating for C. diff colitis, Gm + bacteremia, CHARLIE, shock liver.. Was transferred to the ICU 07/25/2023 following episode of coffee-ground emesis and subsequent hypotension requiring vasopressor support. He is now mechanically ventilated. He remains in atrial fibrillation with controlled rate. Amiodarone has been discontinued as well as metoprolol. Date of service 07/27/2023: Remains intubated and sedated. REc'd several liters IV fluids. Vasopressors weaned off this a.m. Xarelto on hold for GI evaluation and UGI bleed. Blood C&S grew Gm + cocci in one bottle. Has CHARLIE but making some urine. Elevated LFTs 2nd shock liver still quite high but declining. Tele: a fib, rate generally less than 100 except in the 120s when he had a sedation vacation today. Review of Systems Review of Systems: Review of systems as above, changed from the patient's nurse and EMR ROS unobtainable: Yes unobtainable due to endotracheal tube, unobtainable due to medical condition and unobtainable due to mental status Exam Narrative: Intubated and sedated, obese, bilateral BKAs. NG tube draining haynes clear gastric contents Const: General: comfortable; No healthy appearing Orientation/consciousness: o
[2023-07-27] MEDS: SODIUM CHLORIDE 0.9% IV 250 ML 30 ML IV CONT (13:20)
[2023-07-27 16:25] LABS: Glucose Point of Care 313 mg/dl (65-105)
--- NOTE | 2023-07-27 17:16 | P.PNIM_ITS ---
Progress Note: A&P Assessment and Plan (1) Atrial fibrillation with rapid ventricular response: Code(s): I48.91 - Unspecified atrial fibrillation Status: Acute Assessment and Plan: Cardiology consulted: * Discontinue diltiazem drip in favor of amiodarone. Will administer bolus first followed by drip per protocol. * Check echo * Daily BMP. Want to keep K+ ~4,0 and Mag ~2.0 * Xarelto held due to hematemesis. (2) Elevated troponin: Code(s): R79.89 - Other specified abnormal findings of blood chemistry Status: Acute Assessment and Plan: May be related to above. No complaints of chest pain. EKG shows possible anterior myocardial infarction of indeterminant age. * troponins trend did not con't to elevate * Echocardiogram ordered * cardiology consulted * Last angiogram in August 2021 reviewed by Cardiology. No plan to undergo any ischemic evaluation at this (3) Renal failure: Code(s): N19 - Unspecified kidney failure Status: Acute Assessment and Plan: * Creatinine bumped up 2.8. No recent labs to establish baseline. Monitor renal functions closely * May have underlying chronic kidney disease though he was likely dehydrated from decreased oral intake an ongoing loose stools. * Avoid nephrotoxic agents and renally dose all medications. * Trend labs * F/U UA (4) Fall from ground level: Code(s): W18.30XA - Fall on same level, unspecified, initial encounter Status: Acute Assessment and Plan: * Fall from ground level today with head trauma and several skin tears. * CT negative for acute changes * Initiate fall precautions. * Wound care per nursing staff. (5) Combined systolic and diastolic congestive heart failure: Code(s): I50.40 - Unspecified combined systolic (congestive) and diastolic (congestive) heart failure Status: Acute Assessment and Plan: * Continue cautious IV fluid rehydration. * Monitor volume status with daily weights and I/O. * cardiology consulted * Patient to be treated medically for cardiomyopathy and CHF as per cardiology (6) Type 2 diabetes mellitus: Code(s): E11.9 - Type 2 diabetes mellitus without complications Status: Acute Assessment and Plan: * hemoglobin A1c today was 7.5%. * Continue basal insulin, sliding scale insulin, Accu-Cheks, and hypoglycemic protocol. (7) Hypertension: Code(s): I10 - Essential (primary) hypertension Status: Acute Assessment and Plan: * Blood pressures were reviewed and they are stable. * Monitor closely as some of his medications are on hold given the increasing renal function. (8) Diarrhea: Code(s): R19.7 - Diarrhea, unspecified Status: Acute Assessment and Plan: * Check stool cultures and C diff. * c. diff positive, started on Vancomycin * Supportive care. (9) Hematemesis: Code(s): K92.0 - Hematemesis Status: Acute Assessment and Plan: * Hold anticoagulation * Monitor H&H closely * Patient intubated on 07/25/2023 * Under scope by GI once he is medically stable * Time Spent With Patient Time with patient: 25 - 35 minutes Subjective Date/time seen: 07/27/23 17:16 Interval history: Patient remains intubated and sedated. Review of Systems Review of Systems: Unable to be obtained. Patient is intubated and sedated ROS unobta
--- NOTE | 2023-07-27 17:16 | PM.IMPN ---
Progress Note: A&P Assessment and Plan (1) Atrial fibrillation with rapid ventricular response: Code(s): I48.91 - Unspecified atrial fibrillation Status: Acute Assessment and Plan: Cardiology consulted: Discontinue diltiazem drip in favor of amiodarone. Will administer bolus first followed by drip per protocol. Check echo Daily BMP. Want to keep K+ ~4,0 and Mag ~2.0 Xarelto held due to hematemesis. (2) Elevated troponin: Code(s): R79.89 - Other specified abnormal findings of blood chemistry Status: Acute Assessment and Plan: May be related to above. No complaints of chest pain. EKG shows possible anterior myocardial infarction of indeterminant age. troponins trend did not con't to elevate Echocardiogram ordered cardiology consulted Last angiogram in August 2021 reviewed by Cardiology. No plan to undergo any ischemic evaluation at this (3) Renal failure: Code(s): N19 - Unspecified kidney failure Status: Acute Assessment and Plan: Creatinine bumped up 2.8. No recent labs to establish baseline. Monitor renal functions closely May have underlying chronic kidney disease though he was likely dehydrated from decreased oral intake an ongoing loose stools. Avoid nephrotoxic agents and renally dose all medications. Trend labs F/U UA (4) Fall from ground level: Code(s): W18.30XA - Fall on same level, unspecified, initial encounter Status: Acute Assessment and Plan: Fall from ground level today with head trauma and several skin tears. CT negative for acute changes Initiate fall precautions. Wound care per nursing staff. (5) Combined systolic and diastolic congestive heart failure: Code(s): I50.40 - Unspecified combined systolic (congestive) and diastolic (congestive) heart failure Status: Acute Assessment and Plan: Continue cautious IV fluid rehydration. Monitor volume status with daily weights and I/O. cardiology consulted Patient to be treated medically for cardiomyopathy and CHF as per cardiology (6) Type 2 diabetes mellitus: Code(s): E11.9 - Type 2 diabetes mellitus without complications Status: Acute Assessment and Plan: hemoglobin A1c today was 7.5%. Continue basal insulin, sliding scale insulin, Accu-Cheks, and hypoglycemic protocol. (7) Hypertension: Code(s): I10 - Essential (primary) hypertension Status: Acute Assessment and Plan: Blood pressures were reviewed and they are stable. Monitor closely as some of his medications are on hold given the increasing renal function. (8) Diarrhea: Code(s): R19.7 - Diarrhea, unspecified Status: Acute Assessment and Plan: Check stool cultures and C diff. c. diff positive, started on Vancomycin Supportive care. (9) Hematemesis: Code(s): K92.0 - Hematemesis Status: Acute Assessment and Plan: Hold anticoagulation Monitor H&H closely Patient intubated on 07/25/2023 Under scope by GI once he is medically stable Time Spent With Patient Time with patient: 25 - 35 minutes Subjective Date/time seen: 07/27/23 17:16 Interval history: Patient remains intubated and sedated. Review of Systems Review of Systems: Unable to be obtained. Patient is intubated and sedated ROS unobtainable: Yes unobtainable due to endotracheal tube and unobtainable due to medical condition Exam Narrative: General: Patient is intubated and sedated HEENT: Laceration over the right eyebrow has been repaired. PERRL, EOMI. Sclera anicteric. Tacky mucous membranes. Crowded oropharynx. Neck: Supple. No JVD. Respiratory: Bilateral fair air entry, endotracheal tube in place, patient hooked to ventilator Cardiovascular: Irregularly irregular rate and rhythm. Gastrointestinal: Abdomen is soft, obese, nontender, and nondistended with positive bowel
[2023-07-27 21:37] LABS: Glucose Point of Care 287 mg/dl (65-105)
[2023-07-28] VITALS (36 sets, daily range): BP systolic 75–131; BP diastolic 60–91; PULSE 84–135; RESP 18–24; TEMP 36.6–37.7; O2SAT 98–100
[2023-07-28] MEDS: VANCOMYCIN ORAL 500 MG/10 ML SYRUP PO ×4 (00:26→17:50)
[2023-07-28] MEDS: INSULIN ASPART (*BKC) 100 UNITS/ML SUB-Q ×6 (00:26→21:11)
[2023-07-28 00:36] LABS: Glucose Point of Care 276 mg/dl (65-105)
[2023-07-28] MEDS: LEVALBUTEROL NEB 1.25 MG/3 ML 0.63 MG INHALATION ×3 (02:37→20:52)
[2023-07-28] MEDS: IPRATROPIUM BR 0.02% INH SOLN 0.5 MG/2.5 ML VIAL INHALATION ×3 (02:38→20:51)
[2023-07-28 04:29] LABS: Glucose Point of Care 273 mg/dl (65-105)
[2023-07-28 05:49] LABS: Alveolar/Arterial O2 Gradient 140.9 mmHg; Base Excess ABG 0.1 mEq/l (+/-2.0); Carboxyhemoglobin 0.3 % THb (0-2.0); Device VENTILATOR; Fractional Inspired Oxygen 30 %; HCO3 ABG 22.5 mEq/l (22.0-26.0); Methemoglobin ABG 0.1 %THb (0-1.5); Modified Allen's Test Pass; Oxygen Content ABG 16.2 %vol (16.0-22.0); Oxygen Saturation ABG 98.1 % (95.0-100.0); Oxyhemoglobin 96.6 % THb (90.0-100.0); PCO2 ABG 29.8 mmHg (35.0-45.0); PO2 ABG 101.8 mmHg (80.0-100.0); PO2 FiO2 Ratio Arterial Blood 3.39 %; Site Drawn LEFT RADIAL; Total Hemoglobin 11.8 g/dL (12.0-18.0); pH ABG 7.496 (7.350-7.450)
[2023-07-28 05:50] LABS: Arterial Blood Gas PEEP 5 cmH2O; Arterial Blood Gas Tidal Volume 420 ml; Arterial Blood Gas Vent Mode CMV; Arterial Blood Gas Ventilator rate 18 /MIN
[2023-07-28] MEDS: CENTRAL LINE FLUSH 10 ML IV PUSH ×3 (05:50→21:12)
[2023-07-28] MEDS: HYDROCORTISONE SODIUM SUCCINATE 100 MG/2 ML VIAL IV PUSH (05:50)
[2023-07-28 06:23] LABS: Basophils Percent Auto 0.1 % (0.2-1.2); Eosinophils Percent Auto 0.1 % (0-4.4); Hemoglobin 9.1 g/dL (14.0-18.0); Immature Granulocyte Percent A 0.9 % (0-0.5); Lymphocytes Absolute Auto 0.33 K/mm3 (0.9-3.2); Mean Corpuscular HGB Conc 31.4 g/dl (32-36); Mean Corpuscular Hemoglobin 25.2 pg (26-34); Mean Corpuscular Volume 80.3 fl (80-100); Monocytes Absolute Auto 0.7 K/mm3 (0.1-0.6); Monocytes Percent Auto 5.9 % (2.6-8.5); Platelet Count Result 246 k/mm3 (150-375); Red Blood Count 3.61 M/mm3 (4.6-6.20); Red Cell Distribution Width 20.4 % (11.5-14.5); White Blood Count 11.1 K/mm3 (4.5-10.0)
[2023-07-28 06:34] LABS: INR 2.1; Prothrombin Time 24.9 Seconds (11.1-14.7)
[2023-07-28 06:35] LABS: Partial Thromboplastin Time 30.5 SECONDS (22.3-36.8)
[2023-07-28 06:39] LABS: Lactic Acid Reflex 1.4 mmol/L (0.7-2.0)
[2023-07-28 06:48] LABS: Albumin Level 3.6 g/dL (3.5-5.1); Alkaline Phosphatase 130 U/L (38-126); Anion Gap 11 mmol/L (8-16); Bilirubin,Total 0.9 mg/dL (0.2-1.3); Blood Urea Nitrogen 75 mg/dL (9-20); Calcium 7.5 mg/dL (8.4-10.2); Carbon Dioxide 25 mmol/L (22-30); Chloride 95 mmol/L (98-107); Estimated CRCL calculation 23 ml/min; Estimated Glomerular Filt Rate 18; Glucose 255 mg/dL (65-110); Magnesium 2.9 mg/dL (1.6-2.3); Phosphorus 4.3 mg/dL (2.5-4.5); Potassium 3.9 mmol/L (3.4-5.0); Sodium 131 mmol/L (137-145)
[2023-07-28 08:27] LABS: Alanine Aminotransferase 1732 U/L (6-50)
[2023-07-28] MEDS: MINERAL OIL/WHITE PETROLATUM OINTMENT 1 APPLIC EACH EYE ×2 (09:06→21:12)
[2023-07-28] MEDS: PANTOPRAZOLE SODIUM IV 80 MG in SODIUM CHLORIDE 0.9% IV 500 ML 50 MG IV CONT ×2 (09:07→19:47)
[2023-07-28] MEDS: INSULIN GLARGINE (*BKC) 100 UNITS/ML 50 UNITS SUB-Q (09:08)
[2023-07-28 09:44] LABS: Glucose Point of Care 255 mg/dl (65-105)
[2023-07-28 10:21] LABS: Vancomycin Random 11.8 ug/mL (10-20)
--- NOTE | 2023-07-28 10:45 | WPDINTPN ---
Progress Note: A&P Assessment and Plan (1) Acute respiratory failure: Code(s): J96.00 - Acute respiratory failure, unspecified whether with hypoxia or hypercapnia Status: Acute Assessment and Plan: Patient was intubated as he was having multiple episodes of hematemesis and coffee-ground emesis. Patient was intubated for waxing and waning mentation increasing oxygen requirements 07/25: Intubated Chest x-ray and ABG reviewed Will evaluate for weaning after EGD today -continue bronchodilators -sedated with fentanyl and Versed infusion, maintain RASS of 0 to -2, daily sedation vacation (2) Shock: Code(s): R57.9 - Shock, unspecified Status: Acute Assessment and Plan: Patient was hypotensive despite receiving multiple fluid boluses, central line was inserted on 07/25, patient was initially started on Frank-Synephrine, then Levophed and vasopressin were added -patient off of vasopressors at this time DC hydrocortisone -lactic acid was 4.6, has normalized to 1.6 this morning Antibiotics as below -significant elevated LFTs likely related to shock liver, improving. will continue to trend (3) C. difficile colitis: Code(s): A04.72 - Enterocolitis due to Clostridium difficile, not specified as recurrent Status: Acute Assessment and Plan: Patient has been having diarrhea, C diff was positive -patient currently on vancomycin 500 per NG tube -diarrhea has improved. Patient is off IV Flagyl -will decrease vancomycin dose to 250 mg -GI following the patient (4) Hematemesis: Code(s): K92.0 - Hematemesis Status: Acute Assessment and Plan: Hematemesis likely related to GI bleed, NG canister shows dark red blood -GI planning to perform EGD today -Xarelto is on hold -PPI infusion --monitor hemoglobin and transfuse as needed (5) Renal failure: Code(s): N19 - Unspecified kidney failure Status: Acute Assessment and Plan: Acute kidney injury likely related to severe shock, hemorrhagic versus septic -adequately fluid-resuscitated. hold further IV fluids -renal ultrasound unremarkable -low urine output and increasing creatinine -CK 344 -continue to monitor renal function, electrolytes and urine output (6) Fall from ground level: Code(s): W18.30XA - Fall on same level, unspecified, initial encounter Status: Acute Assessment and Plan: CT scan of the brain on admission did not show any acute intracranial process or fractures, chronic age-related mild diffuse volume loss and chronic small-vessel ischemic disease (7) Chronic anemia: Code(s): D64.9 - Anemia, unspecified Status: Chronic Assessment and Plan: Patient has a history of chronic anemia -no more so likely related to GI bleed/hematemesis/coffee-ground emesis -currently on Protonix infusion (8) Atrial fibrillation with rapid ventricular response: Code(s): I48.91 - Unspecified atrial fibrillation Status: Acute Assessment and Plan: Patient also has history of paroxysmal AFib, was in AFib RVR in the ER and was started on Cardizem infusion which is currently off -currently in AFib but rate controlled (9) Elevated LFTs: Code(s): R79.89 - Other specified abnormal findings of blood chemistry Status: Acute Assessment and Plan: Elevated LFTs likely related to shock liver Negative hepatitis panel and right upper quadrant ultrasound showed [place] gallbladder sludge. Gallbladder wall thickening. Small volume pericholecystic and right upper quadrant fluid. (10) Coagulopathy: Code(s): D68.9 - Coagulation defect, unspecified Status: Acute Assessment and Plan: Patient was on Xarelto but INR has worsened this appears likely secondary to DIC from sepsis and shock / patient was given 10 mg of vitamin K and 2 units of FFP (11) Sepsis: Code(s): A41.9 - Sepsis, unspecified organism Status: Acute Assessment and
[2023-07-28 11:53] LABS: Aspartate Amino Transferase 1384 U/L (17-59)
--- NOTE | 2023-07-28 11:56 | PCFNICU ---
ICU Rounding Note: Pt current nutrition is NPO. Nutrition Recommendation: Vital AF 1.2 at 20 ml/hr. Last recorded weight is 125.8 kg, up from 117 kg on admit. Bowel Motility: +Bm reported 07/28 Labs Reviewed:Mg 2.9,BUN 75, Cr 3.4,Na 131, Glu 255 Meds Noted: Fentanyl, Versed, Protonix, Lantus Skin: WNL Additional Notes: Patient remains on mechanical vent. Plans for EGD. If tube feedings start recommend Vital AF 1.2 at 20 ml/hr, goal rate at 70 ml/hr. Would also recommend Prosource BID to meet protein needs required 2/2 to mechanical vent. Flush 30 ml q 4 hours. Agree with diet orders. Following daily in ICU rounds. Will monitor weight, labs, meds,skin, diet order daily in ICU rounds and reassessing every Tuesday and Tuesday.
[2023-07-28 11:57] LABS: Glucose Point of Care 249 mg/dl (65-105)
--- NOTE | 2023-07-28 12:15 | PM.CNNEP ---
Assessment and Plan Assessment and plan (1) CHARLIE (acute kidney injury): Code(s): N17.9 - Acute kidney failure, unspecified Status: Acute Assessment and Plan: baseline creatinine seems to run around 1.2 - 1.3mg/dl however, has significant risk factors for CKD -- PAD/PVD, CAD, CHF, diabetes, BPH, and hyperlpidemia acute insult multifactorial: shock hemodynamic instability pre-renal factors infection (?) use of diuretics and GEOVANNA-I prior to admission s/p adequeate IVF resuscitation s/p vasopressor therapy evaluation to date: renal ultrasound unremarkable CPK mildly elevated at 344 (not andria enough affect renal function) urine eosinophils negative urine electrolytes prerenal urine output fluctuating with rising creatinine 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 follow repeat labs and urine output (2) Sepsis: Code(s): A41.9 - Sepsis, unspecified organism Status: Acute Assessment and Plan: initially admitted with shock as well hypotensive despite multiiple IVF bolues central line placed and initiated on vasopressor therapy -- off all vasopressor therapy currently culture data noted continue antibiotics therapy follow trend of hemodynamics (3) Acute respiratory failure: Code(s): J96.00 - Acute respiratory failure, unspecified whether with hypoxia or hypercapnia Status: Acute Assessment and Plan: intubated due to altered mental status, hypoxia, along with hematemesis/coffee-ground emesis ventilator weaning once more stable follow CXR and ABGs (4) C. difficile colitis: Code(s): A04.72 - Enterocolitis due to Clostridium difficile, not specified as recurrent Status: Acute Assessment and Plan: diarrhea on admission and positive assay noted on vancomycin per tube Gastroenterology following (5) Hematemesis: Code(s): K92.0 - Hematemesis Status: Acute Assessment and Plan: secondary to GI bleed known history of chronic anemia as well anticoagulation on hold on PPI GI following as well follow trend of H/H (6) Elevated LFTs: Code(s): R79.89 - Other specified abnormal findings of blood chemistry Status: Acute Assessment and Plan: due to shock liver hepatitis panel negative results of RUQ ultrasound noted follow trend I will continue follow the patient with you while he remains hospitalized and make further recommendations as needed. Thank you for allowing me to participate in care of this patient. History of Present Illness Reason for Consult Consult date: 07/28/23 Reason for consult: acute renal failure Chief Complaint Chief complaint: atrial fibrillation with rvr History of Present Illness Narrative: All the information that I have obtained is from review of the electronic medical record as well as discussion with the physician/nurses involved in the patient's care as I am unable to get any history from the patient due to his current clinical status. The patient is a 73-year-old male with an extensive past medical history as outlined below who presented to [facility] Emergency room several days ago after sustaining a fall. The patient apparently hit his head on his own walker and sustained multiple skin tears on his arms as well as a laceration to his right forehead above his eyebrow. He had no reported loss of consciousness but was transported to the ER for further assessment. Workup and evaluation emergency room discovered the patient to be in atrial fibrillation with RVR. He was started on a Cardizem drip with some improvement in his heart rate and he was subsequently admitted to the hospital for further evaluation and therapy. Since his admission to the hospital, the patient's hospital course has been complicated by anemia secondary to him at emesis and coffee-ground vomitus subsequently leading to intubation and placement on mechanical venti
--- NOTE | 2023-07-28 12:15 | P.CONNP_ITS ---
Assessment and Plan Assessment and plan (1) CHARLIE (acute kidney injury): Code(s): N17.9 - Acute kidney failure, unspecified Status: Acute Assessment and Plan: * baseline creatinine seems to run around 1.2 - 1.3mg/dl * however, has significant risk factors for CKD -- PAD/PVD, CAD, CHF, diabetes, BPH, and hyperlpidemia * acute insult multifactorial: * shock * hemodynamic instability * pre-renal factors * infection (?) * use of diuretics and GEOVANNA-I prior to admission * s/p adequeate IVF resuscitation * s/p vasopressor therapy * evaluation to date: * renal ultrasound unremarkable * CPK mildly elevated at 344 (not andria enough affect renal function) * urine eosinophils negative * urine electrolytes prerenal * urine output fluctuating with rising creatinine * 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 * follow repeat labs and urine output (2) Sepsis: Code(s): A41.9 - Sepsis, unspecified organism Status: Acute Assessment and Plan: * initially admitted with shock as well * hypotensive despite multiiple IVF bolues * central line placed and initiated on vasopressor therapy -- off all vasopressor therapy currently * culture data noted * continue antibiotics therapy * follow trend of hemodynamics (3) Acute respiratory failure: Code(s): J96.00 - Acute respiratory failure, unspecified whether with hypoxia or hypercapnia Status: Acute Assessment and Plan: * intubated due to altered mental status, hypoxia, along with brendon temesis/coffee-ground emesis * ventilator weaning once more stable * follow CXR and ABGs (4) C. difficile colitis: Code(s): A04.72 - Enterocolitis due to Clostridium difficile, not specified as recurrent Status: Acute Assessment and Plan: * diarrhea on admission and positive assay noted * on vancomycin per tube * Gastroenterology following (5) Hematemesis: Code(s): K92.0 - Hematemesis Status: Acute Assessment and Plan: * secondary to GI bleed * known history of chronic anemia as well * anticoagulation on hold * on PPI * GI following as well * follow trend of H/H (6) Elevated LFTs: Code(s): R79.89 - Other specified abnormal findings of blood chemistry Status: Acute Assessment and Plan: * due to shock liver * hepatitis panel negative * results of RUQ ultrasound noted * follow trend I will continue follow the patient with you while he remains hospitalized and make further recommendations as needed. Thank you for allowing me to participate in care of this patient. History of Present Illness Reason for Consult Consult date: 07/28/23 Reason for consult: acute renal failure Chief Complaint Chief complaint: atrial fibrillation with rvr History of Present Illness Narrative: All the information that I have obtained is from review of the electronic medical record as well as discussion with the physician/nurses involved in the patient's care as I am unable to get any history from the patient due to his current clinical status. The patient is a 73-year-old male with an extensive past medical history as outlined below who presented to [facility] Emergency room several days ago after sustaining a fall. The patient apparently hit his head on his own walker and sustained multiple skin tears on his arms as well as a laceration to his right forehead above his eyebrow. He had no reported loss of consciousness but was transported to the ER for further as
--- NOTE | 2023-07-28 16:03 | SUR.OPER ---
Versed 1 mg given ivp by FEEDER TENDERGILBERTO Hodge
[2023-07-28] MEDS: MIDAZOLAM HCL (*CRX) 2 MG/2 ML VIAL 1 MG IV PUSH (16:39)
[2023-07-28 16:51] LABS: Glucose Point of Care 258 mg/dl (65-105)
[2023-07-28] MEDS: MIDAZOLAM 100MG/NS 100ML(*CRX) 100 MG/100 ML BAG IV CONT (17:50)
[2023-07-28 21:09] LABS: Glucose Point of Care 238 mg/dl (65-105)
[2023-07-29] VITALS (33 sets, daily range): BP systolic 76–156; BP diastolic 55–143; PULSE 101–146; RESP 15–20; TEMP 36.6–37.7; O2SAT 98–100
[2023-07-29] MEDS: VANCOMYCIN ORAL 500 MG/10 ML SYRUP PO ×2 (00:09→06:59)
[2023-07-29] MEDS: LEVALBUTEROL NEB 1.25 MG/3 ML 0.63 MG INHALATION ×4 (03:16→20:07)
[2023-07-29] MEDS: IPRATROPIUM BR 0.02% INH SOLN 0.5 MG/2.5 ML VIAL INHALATION ×4 (03:16→20:07)
[2023-07-29 03:28] LABS: Glucose Point of Care 211 mg/dl (65-105)
[2023-07-29] MEDS: INSULIN ASPART (*BKC) 100 UNITS/ML SUB-Q ×2 (03:30→20:50)
[2023-07-29 05:17] LABS: Alveolar/Arterial O2 Gradient 75.1 mmHg; Base Excess ABG -0.6 mEq/l (+/-2.0); Carboxyhemoglobin 0.2 % THb (0-2.0); Fractional Inspired Oxygen 30 %; HCO3 ABG 22.1 mEq/l (22.0-26.0); Methemoglobin ABG 0.1 %THb (0-1.5); Oxygen Content ABG 14.9 %vol (16.0-22.0); Oxygen Saturation ABG 98.2 % (95.0-100.0); Oxyhemoglobin 96.5 % THb (90.0-100.0); PCO2 ABG 29.6 mmHg (35.0-45.0); PO2 FiO2 Ratio Arterial Blood 3.47 %; Reduced Hemoglobin 3.2 %THb (0-5.0); Total Hemoglobin 10.9 g/dL (12.0-18.0)
[2023-07-29 05:44] LABS: Arterial Blood Gas PEEP 5 cmH2O; Arterial Blood Gas Tidal Volume 420 ml; Arterial Blood Gas Vent Mode CMV; Arterial Blood Gas Ventilator rate 18 /MIN; Device VENTILATOR; Modified Allen's Test Pass; Site Drawn LEFT RADIAL
[2023-07-29 05:49] LABS: Basophils Percent Auto 0.1 % (0.2-1.2); Eosinophils Percent Auto 0.1 % (0-4.4); Immature Granulocyte Percent A 0.9 % (0-0.5); Lymphocytes Percent Auto 6.8 % (18.3-44.2); Mean Corpuscular Hemoglobin 25.1 pg (26-34); Mean Platelet Volume 9.6 fl (7.4-10.4); Monocytes Absolute Auto 1.1 K/mm3 (0.1-0.6); Monocytes Percent Auto 9.1 % (2.6-8.5); Neutrophils Absolute Auto 9.7 K/mm3 (1.3-6.7); Nucleated Red Blood Cells Perc 0.2 % (0.0-0.2); Platelet Count Result 265 k/mm3 (150-375); Red Blood Count 3.58 M/mm3 (4.6-6.20); Red Cell Distribution Width 20.3 % (11.5-14.5); White Blood Count 11.7 K/mm3 (4.5-10.0)
[2023-07-29 05:58] LABS: Lactic Acid Reflex 1.3 mmol/L (0.7-2.0)
[2023-07-29 05:59] LABS: INR 1.8; Prothrombin Time 21.7 Seconds (11.1-14.7)
[2023-07-29 06:00] LABS: Partial Thromboplastin Time 30.7 SECONDS (22.3-36.8)
[2023-07-29 06:01] LABS: Albumin Level 3.3 g/dL (3.5-5.1); Alkaline Phosphatase 135 U/L (38-126); Anion Gap 11 mmol/L (8-16); Bilirubin,Total 0.8 mg/dL (0.2-1.3); Blood Urea Nitrogen 83 mg/dL (9-20); Calcium 7.2 mg/dL (8.4-10.2); Carbon Dioxide 23 mmol/L (22-30); Chloride 100 mmol/L (98-107); Estimated CRCL calculation 22 ml/min; Estimated Glomerular Filt Rate 17; Glucose 172 mg/dL (65-110); Magnesium 3.1 mg/dL (1.6-2.3); Phosphorus 3.9 mg/dL (2.5-4.5); Potassium 3.3 mmol/L (3.4-5.0); Sodium 134 mmol/L (137-145)
[2023-07-29 06:14] LABS: Aspartate Amino Transferase 748 U/L (17-59)
[2023-07-29 06:47] LABS: Alanine Aminotransferase 1370 U/L (6-50)
[2023-07-29] MEDS: CENTRAL LINE FLUSH 10 ML IV PUSH ×3 (06:58→20:44)
[2023-07-29] MEDS: INSULIN GLARGINE (*BKC) 100 UNITS/ML 50 UNITS SUB-Q (08:36)
[2023-07-29] MEDS: POTASSIUM CHLORIDE 20 MEQ PACKET (FOR LIQUID) 40 MEQ FEED TUBE (08:36)
[2023-07-29] MEDS: MINERAL OIL/WHITE PETROLATUM OINTMENT 1 APPLIC EACH EYE ×2 (08:38→20:35)
[2023-07-29] MEDS: MEROPENEM 500 MG in SODIUM CHLORIDE 0.9% IV 100 ML 200 ML IVPB ×2 (08:38→20:35)
[2023-07-29] MEDS: PANTOPRAZOLE SODIUM IV 40 MG VIAL IV PUSH ×2 (08:38→20:34)
[2023-07-29 08:59] LABS: Glucose Point of Care 142 mg/dl (65-105)
--- NOTE | 2023-07-29 09:15 | PM.PNNEP ---
Progress Note: A&P Assessment and Plan (1) CHARLIE (acute kidney injury): Code(s): N17.9 - Acute kidney failure, unspecified Status: Acute Assessment and Plan: baseline creatinine seems to run around 1.2 - 1.3mg/dl however, has significant risk factors for CKD -- PAD/PVD, CAD, CHF, diabetes, BPH, and hyperlpidemia acute insult multifactorial: shock hemodynamic instability pre-renal factors infection (?) use of diuretics and GEOVANNA-I prior to admission s/p adequate IVF resuscitation evaluation to date: renal ultrasound unremarkable CPK mildly elevated at 344 (not andria enough affect renal function) urine eosinophils negative urine electrolytes prerenal urine output better in the last 24 hours remains at risk for BEEF GRINDER/dialysis follow repeat labs and urine output (2) Sepsis: Code(s): A41.9 - Sepsis, unspecified organism Status: Acute Assessment and Plan: initially admitted with shock as well hypotensive despite multiiple IVF bolues central line placed and initiated on vasopressor therapy -- on low dose levophed culture data noted continue antibiotics therapy follow trend of hemodynamics (3) Acute respiratory failure: Code(s): J96.00 - Acute respiratory failure, unspecified whether with hypoxia or hypercapnia Status: Acute Assessment and Plan: intubated due to altered mental status, hypoxia, along with hematemesis/coffee-ground emesis ventilator weaning once more stable follow CXR and ABGs (4) C. difficile colitis: Code(s): A04.72 - Enterocolitis due to Clostridium difficile, not specified as recurrent Status: Acute Assessment and Plan: diarrhea on admission and positive assay noted on vancomycin per tube Gastroenterology following (5) Hematemesis: Code(s): K92.0 - Hematemesis Status: Acute Assessment and Plan: secondary to GI bleed known history of chronic anemia as well anticoagulation on hold on PPI GI following s/p EGD (on 07/28) -- findings of erosive esophagitis + gastritis noted but no active bleeding follow trend of H/H (6) Elevated LFTs: Code(s): R79.89 - Other specified abnormal findings of blood chemistry Status: Acute Assessment and Plan: due to shock liver hepatitis panel negative results of RUQ ultrasound noted follow trend Will continue to follow. Subjective Date/time seen: 07/29/23 09:15 Interval history: Follow-up for acute kidney injury/acute renal failure. Remains intubated/sedated and on mechanical ventilation; still requiring low dose vasopressor support at this time; status post EGD yesterday afternoon with results noted; renal function slightly worse but better urine output noted in the last 24 hours; no other acute issues/events overnight or earlier this morning. Exam Narrative: General: elderly male intubated/sedated and on mechanical ventilation Heart: IRRR, tachycardic; no rub Lungs: coarse and decreased at bases Abdomen: soft, nontender, nondistended, positive bowel sounds Extremities: s/p right aKA and left BKA; no edema Skin: warm and dry Objective Data Vital Signs Vital Signs: Vital Signs Temp Pulse Resp BP Pulse Ox O2 Del Method FiO2 07/29/23 09:14 146 H 20 07/29/23 08:00 114 H 07/29/23 08:00 99 Mechanical Ventilation 30 07/29/23 08:00 30 07/29/23 08:00 98.4 F 108 H 17 85/68 L 99 07/29/23 07:50 115 H 18 07/29/23 07:50 119 H 18 07/29/23 07:48 101 H 15 07/29/23 07:48 100 Mechanical Ventilation 30 07/29/23 07:48 101 H 100 Mechanical Ventilation 30 07/29/23 06:00 104 H 07/29/23 06:00 108 H 18 86/65 L 100 07/29/23 04:00 97.9 F 111 H 18 96/68 L 100 07/29/23 04:00 30 07/29/23 04:00 111 H 19 100 Mechanical Ventilation 30 07/29/23 04:00 111 H 07/29/23 04:46
--- NOTE | 2023-07-29 09:15 | P.PNNP_ITS ---
Progress Note: A&P Assessment and Plan (1) CHARLIE (acute kidney injury): Code(s): N17.9 - Acute kidney failure, unspecified Status: Acute Assessment and Plan: * baseline creatinine seems to run around 1.2 - 1.3mg/dl * however, has significant risk factors for CKD -- PAD/PVD, CAD, CHF, diabetes, BPH, and hyperlpidemia * acute insult multifactorial: * shock * hemodynamic instability * pre-renal factors * infection (?) * use of diuretics and GEOVANNA-I prior to admission * s/p adequate IVF resuscitation * evaluation to date: * renal ultrasound unremarkable * CPK mildly elevated at 344 (not andria enough affect renal function) * urine eosinophils negative * urine electrolytes prerenal * urine output better in the last 24 hours * remains at risk for DIAGNOSTICS TECH/dialysis * follow repeat labs and urine output (2) Sepsis: Code(s): A41.9 - Sepsis, unspecified organism Status: Acute Assessment and Plan: * initially admitted with shock as well * hypotensive despite multiiple IVF bolues * central line placed and initiated on vasopressor therapy -- on low dose levophed * culture data noted * continue antibiotics therapy * follow trend of hemodynamics (3) Acute respiratory failure: Code(s): J96.00 - Acute respiratory failure, unspecified whether with hypoxia or hypercapnia Status: Acute Assessment and Plan: * intubated due to altered mental status, hypoxia, along with hematemesis/coffee-ground emesis * ventilator weaning once more stable * follow CXR and ABGs (4) C. difficile colitis: Code(s): A04.72 - Enterocolitis due to Clostridium difficile, not specified as recurrent Status: Acute Assessment and Plan: * diarrhea on admission and positive assay noted * on vancomycin per tube * Gastroenterology following (5) Hematemesis: Code(s): K92.0 - Hematemesis Status: Acute Assessment and Plan: * secondary to GI bleed * known history of chronic anemia as well * anticoagulation on hold * on PPI * GI following * s/p EGD (on 07/28) -- findings of erosive esophagitis + gastritis noted but no active bleeding * follow trend of H/H (6) Elevated LFTs: Code(s): R79.89 - Other specified abnormal findings of blood chemistry Status: Acute Assessment and Plan: * due to shock liver * hepatitis panel negative * results of RUQ ultrasound noted * follow trend Will continue to follow. Subjective Date/time seen: 07/29/23 09:15 Interval history: Follow-up for acute kidney injury/acute renal failure. Remains intubated/sedated and on mechanical ventilation; still requiring low dose vasopressor support at this time; status post EGD yesterday afternoon with results noted; renal function slightly worse but better urine output noted in the last 24 hours; no other acute issues/events overnight or earlier this morning. Exam Narrative: General: elderly male intubated/sedated and on mechanical ventilation Heart: IRRR, tachycardic; no rub Lungs: coarse and decreased at bases Abdomen: soft, nontender, nondistended, positive bowel sounds Extremities: s/p right aKA and left BKA; no edema Skin: warm and dry Objective Data Vital Signs Vital Signs: Vital Signs Temp Pulse Resp BP Pulse Ox O2 Del Method FiO2 07/29/23 09:1
[2023-07-29] MEDS: dexmedeTOMIDine 400 MCG/100 ML 400 MCG/100 ML BAG 6.29 MCG IV CONT (09:44)
--- NOTE | 2023-07-29 11:23 | WPDINTPN ---
Progress Note: A&P Assessment and Plan (1) Acute respiratory failure: Code(s): J96.00 - Acute respiratory failure, unspecified whether with hypoxia or hypercapnia Status: Acute Assessment and Plan: Patient was intubated as he was having multiple episodes of hematemesis and coffee-ground emesis. Patient was intubated for waxing and waning mentation increasing oxygen requirements 07/25: Intubated Chest x-ray and ABG reviewed Sedation holiday was performed and patient was evaluate for weaning trial but patient went to AFib with RVR. -continue bronchodilators to change to p.r.n. -sedated with fentanyl and Versed infusion. Switch Versed to Precedex (2) Shock: Code(s): R57.9 - Shock, unspecified Status: Acute Assessment and Plan: Patient was hypotensive despite receiving multiple fluid boluses, central line was inserted on 07/25, patient was initially started on Frank-Synephrine, then Levophed and vasopressin were added -patient off of vasopressors at this time Off hydrocortisone Antibiotics as below -significant elevated LFTs likely related to shock liver, improving. will continue to trend (3) C. difficile colitis: Code(s): A04.72 - Enterocolitis due to Clostridium difficile, not specified as recurrent Status: Acute Assessment and Plan: Patient has been having diarrhea, C diff was positive -patient currently on vancomycin 500 per NG tube -diarrhea has improved. Patient is off IV Flagyl -will decrease vancomycin dose to 250 mg -GI following the patient (4) Hematemesis: Code(s): K92.0 - Hematemesis Status: Acute Assessment and Plan: Hematemesis likely related to GI bleed, NG canister shows dark red blood 07/28 EGD done and showed gastritis and reflux esophagitis -Xarelto is on hold -PPI switched to IV q.12 hours --monitor hemoglobin and transfuse as needed (5) Renal failure: Code(s): N19 - Unspecified kidney failure Status: Acute Assessment and Plan: Acute kidney injury likely related to severe shock, hemorrhagic versus septic -adequately fluid-resuscitated. hold further IV fluids -renal ultrasound unremarkable -low urine output and slightly increased creatinine -CK 344 -continue to monitor renal function, electrolytes and urine output Nephrology following (6) Fall from ground level: Code(s): W18.30XA - Fall on same level, unspecified, initial encounter Status: Acute Assessment and Plan: CT scan of the brain on admission did not show any acute intracranial process or fractures, chronic age-related mild diffuse volume loss and chronic small-vessel ischemic disease (7) Chronic anemia: Code(s): D64.9 - Anemia, unspecified Status: Chronic Assessment and Plan: Patient has a history of chronic anemia -no more so likely related to GI bleed/hematemesis/coffee-ground emesis -currently on IV Protonix (8) Atrial fibrillation with rapid ventricular response: Code(s): I48.91 - Unspecified atrial fibrillation Status: Acute Assessment and Plan: Patient also has history of paroxysmal AFib, was in AFib RVR in the ER and was started on Cardizem infusion which is currently off Patient is in AFib with controlled ventricular rate but on sedation holiday patient goes into RVR presenting weaning trial. Will restart amiodarone infusion for rate control Add aspirin (9) Elevated LFTs: Code(s): R79.89 - Other specified abnormal findings of blood chemistry Status: Acute Assessment and Plan: Elevated LFTs likely related to shock liver Negative hepatitis panel and right upper quadrant ultrasound showed Mobile gallbladder sludge. Gallbladder wall thickening. Small volume pericholecystic and right upper quadrant fluid. (10) Coagulopathy: Code(s): D68.9 - Coagulation defect, unspecified Status: Acute Assessment and Plan: Patient was on Xarelto but INR has worsened this appear
--- NOTE | 2023-07-29 11:29 | PCNFU ---
Nutrition Follow-Up Complete: Inadequate Oral Intake as related to mechanical ventilation as evidenced by NPO. Goal: Meet estimated nutritional needs. Patient is progressing towards goal. We will continue current goal. Pt current nutrition is Glucerna 1.2 at 40 ml/hr. Last recorded weight is 125.8 kg, up from 117 kg. Bowel Motility:+BM reported 07/28-formed stools noted. Labs Reviewed:Mg 3.1,GFR 17, BUN 83, Cr 3.6,Glu 172, Alb 3.3 Meds Noted: Lantus, Protonix, Precedex. Skin:WNL Additional Notes: Patient remains on mechanical vent. EGD 07/28-gastritis. Tube feedings started of Glucerna 1.2 currently at 40 ml/hr. Recommend goal rate at 70 ml/hr. Also recommend Prosource BID 2/2 to increased protein needs to mechanical vent. Tube feedings with Protein Modulars at goal rate providing 2008 kcals/132 gms protein/1240 ml water. Meeting 100% kcal needs and 94% protein needs. Flush 30 ml q 4 hours. Will monitor weight, labs, meds,skin, diet order in ICU rounds and reassessing every Tuesday and Tuesday.
[2023-07-29 11:55] LABS: Glucose Point of Care 126 mg/dl (65-105)
[2023-07-29] MEDS: AMIODARONE 150 MG/D5W 100 ML 150 MG/100 ML BAG 600 MG IV CONT (12:04)
[2023-07-29] MEDS: AMIODARONE 360 MG/D5W 200 ML 360 MG/200 ML BAG 33.33 MG IV CONT (12:05)
[2023-07-29 15:54] LABS: Glucose Point of Care 174 mg/dl (65-105)
[2023-07-29] MEDS: AMIODARONE 360 MG/D5W 200 ML 360 MG/200 ML BAG 16.67 MG IV CONT (17:53)
--- NOTE | 2023-07-29 18:24 | PM.IMPN ---
Progress Note: A&P Assessment and Plan (1) Anemia: Code(s): D64.9 - Anemia, unspecified Status: Acute (2) CHARLIE (acute kidney injury): Code(s): N17.9 - Acute kidney failure, unspecified Status: Acute (3) Sepsis: Code(s): A41.9 - Sepsis, unspecified organism Status: Acute (4) Coagulopathy: Code(s): D68.9 - Coagulation defect, unspecified Status: Acute (5) Elevated LFTs: Code(s): R79.89 - Other specified abnormal findings of blood chemistry Status: Acute (6) Shock: Code(s): R57.9 - Shock, unspecified Status: Acute (7) Acute respiratory failure: Code(s): J96.00 - Acute respiratory failure, unspecified whether with hypoxia or hypercapnia Status: Acute (8) C. difficile colitis: Code(s): A04.72 - Enterocolitis due to Clostridium difficile, not specified as recurrent Status: Acute (9) Hematemesis: Code(s): K92.0 - Hematemesis Status: Acute Plan this patient has poor prognosis with multiple severe ongoing acute conditions. likely all started with c diff, but that is resolving and the resultant/ remaining acute issues are acute hypoxic respiratory failure likely 2/2 aspiration, a fib w/ RVR, sepsis, shock, anasarca, acute kidney injury. cont daily weaning trials, however his RVR will have to be better controlled and levophed weaned off. this is complicated by worsening CHARLIE likely from hypovolemia vs sepsis and may be nearing dialysis. if tomorrow his albumin is low or lower we might consider using albumin for intravascular volumes support. nephrology following cont meropenem for aspiration/pna and vancomycin for c diff. cont amiodarone for RVR and levophed for pressure support. dic/coagulopathy. most likely just decreased clearance of clot degradation products since d dimer AND fibrinogen AND platelets are high, so tomorrow if numbers are still improving should consider restarting therapeutic anticoagulation. obviously considering when the hematemesis is resolved, and we will monitor HB especially. cont protonix for gastritis. right now he is on prophylactic does lovenox at 30mg SC daily which is a good start. critical state, guarded prognosis. full code. Subjective Date/time seen: 07/29/23 18:24 Interval history: patient intubated and sedated. sister and brother in law at bedside. all questions answered to satisfaction. Review of Systems Review of Systems: ROS unobtainable: Yes unobtainable due to endotracheal tube Exam Const: General: comfortable and no acute distress Neck: Neck: supple Resp: Other: mech breath sounds Cardio: Rate: tachycardic Rhythm: abnormal rhythm Heart sounds: no gallops, no murmurs and no rubs GI: Inspection: distended GI Palp: No Tenderness to palpation present (GI) Auscultation: bowels sounds not normal (minimal BS) Extrem: Other: anasarca Objective Data Vital Signs Vital Signs: Vital Signs - 24 hr 07/28/23 18:30 07/28/23 19:35 07/28/23 20:48 Temperature Pulse Rate 114 H 111 H 95 Respiratory Rate 18 Blood Pressure 99/72 L Pulse Oximetry 100 Oxygen Delivery Mechanical Ventilation Fraction of Inspired Oxygen 30 07/28/23 20:56 07/28/23 20:00 07/28/23 20:00 Temperature Pulse Rate 101 H 95 101 H Respiratory Rate 18 18 Blood Pressure Pulse Oximetry 100 Oxygen Delivery Mechanical Ventilation Fraction of Inspired Oxygen 30 07/28/23 20:00 07/28/23 20:00 07/28/23 22:00 Temperature 98.6 F Pulse Rate 98 108 H Respiratory Rate 18 Blood Pressure 97/61 L Pulse Oximetry 98 Oxygen Delivery Fraction of Inspired Oxygen 30 07/28/23 22:00 07/28/23 23:31 07/28/23 22:00 Temperature Pulse Rate 108 H 115 H 109 H Respiratory Rate 18 Blood Pressure 102/91 H 102/91 H Pulse Oximetry 100 98 Oxygen Delivery Mechanical Ventilation Fraction of Inspired Oxygen 30 07/29/23 00:09 07/29/23 00:00 1
[2023-07-29 20:58] LABS: Glucose Point of Care 248 mg/dl (65-105)
[2023-07-29] MEDS: dexmedeTOMIDine 400 MCG/100 ML 400 MCG/100 ML BAG 12.58 MCG IV CONT (22:36)
[2023-07-30] VITALS (41 sets, daily range): BP systolic 75–114; BP diastolic 52–94; PULSE 50–138; RESP 12–25; TEMP 37.1–38.7; O2SAT 98–100
[2023-07-30] MEDS: INSULIN ASPART (*BKC) 100 UNITS/ML SUB-Q ×6 (01:10→21:13)
[2023-07-30 01:32] LABS: Glucose Point of Care 227 mg/dl (65-105)
[2023-07-30] MEDS: LEVALBUTEROL NEB 1.25 MG/3 ML 0.63 MG INHALATION ×3 (02:42→13:05)
[2023-07-30] MEDS: IPRATROPIUM BR 0.02% INH SOLN 0.5 MG/2.5 ML VIAL INHALATION ×3 (02:42→13:05)
[2023-07-30 04:54] LABS: Alveolar/Arterial O2 Gradient 79.2 mmHg; Base Excess ABG -1.4 mEq/l (+/-2.0); Carboxyhemoglobin 0.3 % THb (0-2.0); Fractional Inspired Oxygen 30 %; HCO3 ABG 21.3 mEq/l (22.0-26.0); Oxygen Content ABG 15.6 %vol (16.0-22.0); Oxyhemoglobin 96.6 % THb (90.0-100.0); PCO2 ABG 29.2 mmHg (35.0-45.0); PO2 ABG 100.4 mmHg (80.0-100.0); PO2 FiO2 Ratio Arterial Blood 3.35 %; Reduced Hemoglobin 3.1 %THb (0-5.0); Total Hemoglobin 11.4 g/dL (12.0-18.0)
[2023-07-30 04:56] LABS: Device VENTILATOR; Site Drawn RIGHT BRACHIAL
[2023-07-30 04:57] LABS: Arterial Blood Gas PEEP 5 cmH2O; Arterial Blood Gas Tidal Volume 420 ml; Arterial Blood Gas Vent Mode CMV; Arterial Blood Gas Ventilator rate 15 /MIN
[2023-07-30] MEDS: ACETAMINOPHEN ELIXIR 325 MG/10.15 ML UDC 650 MG PO ×2 (05:04→18:38)
[2023-07-30] MEDS: dexmedeTOMIDine 400 MCG/100 ML 400 MCG/100 ML BAG 12.58 MCG IV CONT ×2 (05:06→15:42)
[2023-07-30] MEDS: AMIODARONE 360 MG/D5W 200 ML 360 MG/200 ML BAG 16.67 MG IV CONT ×2 (05:07→15:32)
[2023-07-30 05:22] LABS: Basophils Percent Auto 0.1 % (0.2-1.2); Eosinophils Percent Auto 0.3 % (0-4.4); Hematocrit 32.8 % (42.0-52.0); Hemoglobin 10.1 g/dL (14.0-18.0); Immature Granulocyte Absolute 0.16 K/mm3 (0.00-0.031); Immature Granulocyte Percent A 1.2 % (0-0.5); Lymphocytes Absolute Auto 0.82 K/mm3 (0.9-3.2); Lymphocytes Percent Auto 5.9 % (18.3-44.2); Mean Corpuscular HGB Conc 30.8 g/dl (32-36); Mean Corpuscular Hemoglobin 24.9 pg (26-34); Monocytes Absolute Auto 1.9 K/mm3 (0.1-0.6); Monocytes Percent Auto 13.3 % (2.6-8.5); Neutrophils Percent Auto 79.2 % (45.5-73.1); Nucleated Red Blood Cells Absolute Auto 0.1 K/mm3 (0.0-0.012); Nucleated Red Blood Cells Perc 0.6 % (0.0-0.2); Platelet Count Result 316 k/mm3 (150-375); Red Blood Count 4.05 M/mm3 (4.6-6.20); Red Cell Distribution Width 20.7 % (11.5-14.5); White Blood Count 13.9 K/mm3 (4.5-10.0)
[2023-07-30 05:35] LABS: Prothrombin Time 23.8 Seconds (11.1-14.7)
[2023-07-30 06:08] LABS: Albumin Level 3.4 g/dL (3.5-5.1); Alkaline Phosphatase 136 U/L (38-126); Anion Gap 14 mmol/L (8-16); Aspartate Amino Transferase 421 U/L (17-59); Bilirubin,Total 0.9 mg/dL (0.2-1.3); Blood Urea Nitrogen 104 mg/dL (9-20); Calcium 7.1 mg/dL (8.4-10.2); Carbon Dioxide 20 mmol/L (22-30); Chloride 100 mmol/L (98-107); Estimated CRCL calculation 19 ml/min; Estimated Glomerular Filt Rate 14; Glucose 267 mg/dL (65-110); Magnesium 3.3 mg/dL (1.6-2.3); Phosphorus 4.5 mg/dL (2.5-4.5); Sodium 134 mmol/L (137-145)
[2023-07-30 06:16] LABS: Alanine Aminotransferase 1015 U/L (6-50)
[2023-07-30] MEDS: CENTRAL LINE FLUSH 10 ML IV PUSH ×3 (06:20→21:01)
[2023-07-30 07:28] LABS: Glucose Point of Care 270 mg/dl (65-105)
[2023-07-30] MEDS: ASPIRIN 325 MG TABLET FEED TUBE (10:22)
[2023-07-30] MEDS: MINERAL OIL/WHITE PETROLATUM OINTMENT 1 APPLIC EACH EYE ×2 (10:23→21:01)
[2023-07-30] MEDS: PANTOPRAZOLE SODIUM IV 40 MG VIAL IV PUSH ×2 (10:23→21:01)
[2023-07-30] MEDS: INSULIN GLARGINE (*BKC) 100 UNITS/ML 50 UNITS SUB-Q (10:24)
[2023-07-30] MEDS: ENOXAPARIN 30 MG/0.3 ML SYRINGE SUB-Q (10:28)
[2023-07-30] MEDS: MEROPENEM 500 MG in SODIUM CHLORIDE 0.9% IV 100 ML 200 ML IVPB ×2 (10:49→21:01)
[2023-07-30 12:06] LABS: Glucose Point of Care 331 mg/dl (65-105)
--- NOTE | 2023-07-30 12:12 | WPDINTPN ---
Progress Note: A&P Assessment and Plan (1) Acute respiratory failure: Code(s): J96.00 - Acute respiratory failure, unspecified whether with hypoxia or hypercapnia Status: Acute Assessment and Plan: Patient was intubated as he was having multiple episodes of hematemesis and coffee-ground emesis. Patient was intubated for waxing and waning mentation increasing oxygen requirements 07/25: Intubated Chest x-ray and ABG reviewed Decrease tidal volume to 380 Patient placed on sedation holiday and tried on pressure support ventilation had high RSBI. Patient was placed on pressure support of 20/5 to achieve adequate RSBI. Continue as tolerated -continue bronchodilators to change to p.r.n. (2) Shock: Code(s): R57.9 - Shock, unspecified Status: Acute Assessment and Plan: Patient was hypotensive despite receiving multiple fluid boluses, central line was inserted on 07/25, patient was initially started on Frank-Synephrine, then Levophed and vasopressin were added -patient off off and on dose of Levophed at this time depending on his sedation level Off hydrocortisone Antibiotics as below -significant elevated LFTs likely related to shock liver, improving. will continue to trend (3) C. difficile colitis: Code(s): A04.72 - Enterocolitis due to Clostridium difficile, not specified as recurrent Status: Acute Assessment and Plan: Patient has been having diarrhea, C diff was positive -patient currently on vancomycin 500 per NG tube -diarrhea has improved. Patient is off IV Flagyl -will decrease vancomycin dose to 250 mg -GI following the patient (4) Hematemesis: Code(s): K92.0 - Hematemesis Status: Acute Assessment and Plan: Hematemesis likely related to GI bleed, NG canister shows dark red blood 07/28 EGD done and showed gastritis and reflux esophagitis -Xarelto is on hold -PPI switched to IV q.12 hours --monitor hemoglobin and transfuse as needed (5) Renal failure: Code(s): N19 - Unspecified kidney failure Status: Acute Assessment and Plan: Acute kidney injury likely related to severe shock, hemorrhagic versus septic -adequately fluid-resuscitated. Off further IV fluids -renal ultrasound unremarkable -low urine output and gradually increasing creatinine -CK 344 -continue to monitor renal function, electrolytes and urine output Nephrology following. Will discuss with supervisor pipeline maintenance regarding initiation of DEVELOPMENT TECHNICIAN (6) Fall from ground level: Code(s): W18.30XA - Fall on same level, unspecified, initial encounter Status: Acute Assessment and Plan: CT scan of the brain on admission did not show any acute intracranial process or fractures, chronic age-related mild diffuse volume loss and chronic small-vessel ischemic disease (7) Chronic anemia: Code(s): D64.9 - Anemia, unspecified Status: Chronic Assessment and Plan: Patient has a history of chronic anemia -no more so likely related to GI bleed/hematemesis/coffee-ground emesis -currently on IV Protonix (8) Atrial fibrillation with rapid ventricular response: Code(s): I48.91 - Unspecified atrial fibrillation Status: Acute Assessment and Plan: Patient also has history of paroxysmal AFib, was in AFib RVR in the ER and was started on Cardizem infusion which is currently off Patient is in AFib with controlled ventricular rate but on sedation holiday patient goes into RVR presenting weaning trial. Continue amiodarone infusion for rate control Continue aspirin (9) Elevated LFTs: Code(s): R79.89 - Other specified abnormal findings of blood chemistry Status: Acute Assessment and Plan: Elevated LFTs likely related to shock liver Negative hepatitis panel and right upper quadrant ultrasound showed [place] gallbladder sludge. Gallbladder wall thickening. Small volume pericholecystic and right upper quadrant fluid. (10) Coagulopathy: Code(s)
[2023-07-30] MEDS: PROPOFOL IV EMULSION 100 ML 3.83 MG IV CONT (13:30)
--- NOTE | 2023-07-30 14:38 | P.PNNP_ITS ---
Progress Note: A&P Assessment and Plan (1) CHARLIE (acute kidney injury): Code(s): N17.9 - Acute kidney failure, unspecified Status: Acute Assessment and Plan: * baseline creatinine seems to run around 1.2 - 1.3mg/dl * however, has significant risk factors for CKD -- PAD/PVD, CAD, CHF, diabetes, BPH, and hyperlpidemia * evaluation to date: * renal ultrasound unremarkable * CPK mildly elevated at 344 (not andria enough affect renal function) * urine eosinophils negative * urine electrolytes prerenal * acute insult multifactorial: * shock * hemodynamic instability * pre-renal factors * infection (?) * use of diuretics and GEOVANNA-I prior to admission * urine output is low, only 200cc per shift. * His BUN and creatinine are rising and urine output is minimal. He will need dialysis. Dr Lamar has talked with POA and they are discussing the aggressiveness of care. * Dialysis nurses available this afternoon if dialysis is agreed to. * Discussed with Dr. Lamar (2) Sepsis: Code(s): A41.9 - Sepsis, unspecified organism Status: Acute Assessment and Plan: * initially admitted with shock as well * hypotensive despite multiiple IVF bolues * central line placed and initiated on vasopressor therapy -- on low dose levophed * 1/2 blood cultures positive for Staph capitis. * Sputum culture positive for E coli and yeast * Urine culture negative * Patient is on meropenem and oral vancomycin. * Blood pressure is fairly good on 3 mics of nor epi. (3) Acute respiratory failure: Code(s): J96.00 - Acute respiratory failure, unspecified whether with hypoxia or hypercapnia Status: Acute Assessment and Plan: * intubated due to altered mental status, hypoxia, along with hematemesis/coffee-ground emesis * ventilator weaning once more stable * follow CXR and ABGs (4) C. difficile colitis: Code(s): A04.72 - Enterocolitis due to Clostridium difficile, not specified as recurrent Status: Acute Assessment and Plan: * diarrhea on admission and positive assay noted * on vancomycin per tube * No diarrhea lately. * Gastroenterology following (5) Hematemesis: Code(s): K92.0 - Hematemesis Status: Acute Assessment and Plan: * secondary to GI bleed * known history of chronic anemia as well * anticoagulation on hold * on PPI * GI following * s/p EGD (on 07/28) -- findings of erosive esophagitis + gastritis noted but no active bleeding * Hemoglobin up to 10.1. (6) Elevated LFTs: Code(s): R79.89 - Other specified abnormal findings of blood chemistry Status: Acute Assessment and Plan: * due to shock liver * hepatitis panel negative * results of RUQ ultrasound noted * follow trend Subjective Date/time seen: 07/30/23 14:38 Interval history: Brian is on the ventilator and sedated. Exam Narrative: General: elderly male intubated/sedated and on mechanical ventilation Heart: IRRR, tachycardic; no rub Lungs: coarse and decreased at bases Abdomen: soft, nontender, nondistended, positive bowel sounds Extremities: s/p right aKA and left BKA; trace to1+ edema Skin: No rash Objective Data Vital Signs Vital Signs: Vital Signs - 24 hr 07/29/23 16:00 07/29/23 16:00 07/29/23 16:09 Temperature Pulse Rate 134 H
--- NOTE | 2023-07-30 14:38 | PM.PNNEP ---
Progress Note: A&P Assessment and Plan (1) CHARLIE (acute kidney injury): Code(s): N17.9 - Acute kidney failure, unspecified Status: Acute Assessment and Plan: baseline creatinine seems to run around 1.2 - 1.3mg/dl however, has significant risk factors for CKD -- PAD/PVD, CAD, CHF, diabetes, BPH, and hyperlpidemia evaluation to date: renal ultrasound unremarkable CPK mildly elevated at 344 (not andria enough affect renal function) urine eosinophils negative urine electrolytes prerenal acute insult multifactorial: shock hemodynamic instability pre-renal factors infection (?) use of diuretics and GEOVANNA-I prior to admission urine output is low, only 200cc per shift. His BUN and creatinine are rising and urine output is minimal. He will need dialysis. Dr Lamar has talked with POA and they are discussing the aggressiveness of care. Dialysis nurses available this afternoon if dialysis is agreed to. Discussed with Dr. Lamar (2) Sepsis: Code(s): A41.9 - Sepsis, unspecified organism Status: Acute Assessment and Plan: initially admitted with shock as well hypotensive despite multiiple IVF bolues central line placed and initiated on vasopressor therapy -- on low dose levophed 1/2 blood cultures positive for Staph capitis. Sputum culture positive for E coli and yeast Urine culture negative Patient is on meropenem and oral vancomycin. Blood pressure is fairly good on 3 mics of nor epi. (3) Acute respiratory failure: Code(s): J96.00 - Acute respiratory failure, unspecified whether with hypoxia or hypercapnia Status: Acute Assessment and Plan: intubated due to altered mental status, hypoxia, along with hematemesis/coffee-ground emesis ventilator weaning once more stable follow CXR and ABGs (4) C. difficile colitis: Code(s): A04.72 - Enterocolitis due to Clostridium difficile, not specified as recurrent Status: Acute Assessment and Plan: diarrhea on admission and positive assay noted on vancomycin per tube No diarrhea lately. Gastroenterology following (5) Hematemesis: Code(s): K92.0 - Hematemesis Status: Acute Assessment and Plan: secondary to GI bleed known history of chronic anemia as well anticoagulation on hold on PPI GI following s/p EGD (on 07/28) -- findings of erosive esophagitis + gastritis noted but no active bleeding Hemoglobin up to 10.1. (6) Elevated LFTs: Code(s): R79.89 - Other specified abnormal findings of blood chemistry Status: Acute Assessment and Plan: due to shock liver hepatitis panel negative results of RUQ ultrasound noted follow trend Subjective Date/time seen: 07/30/23 14:38 Interval history: Brian is on the ventilator and sedated. Exam Narrative: General: elderly male intubated/sedated and on mechanical ventilation Heart: IRRR, tachycardic; no rub Lungs: coarse and decreased at bases Abdomen: soft, nontender, nondistended, positive bowel sounds Extremities: s/p right aKA and left BKA; trace to1+ edema Skin: No rash Objective Data Vital Signs Vital Signs: Vital Signs - 24 hr 07/29/23 16:00 07/29/23 16:00 07/29/23 16:09 Temperature Pulse Rate 134 H Respiratory Rate 20 Blood Pressure Pulse Oximetry 98 Oxygen Delivery Mechanical Ventilation Fraction of Inspired Oxygen 30 30 07/29/23 16:00 07/29/23 16:00 07/29/23 16:41 Temperature 98.4 F Pulse Rate 127 H 128 H 119 H Respiratory Rate 20 Blood Pressure 117/68 Pulse Oximetry 98 100 Oxygen Delivery Mechanical Ventilation Fraction of Inspired Oxygen 30 07/29/23 17:53 07/29/23 18:00 07/29/23 18:00 Temperature Pulse Rate 123 H 112 H 122 H Respiratory Rate 18 Blood Pressure 156/143 H 117/72 Pulse Oximetry 99 Oxygen Delivery Fraction of Inspired Oxygen 07/29/23 20:09 07/29/23 20:0
--- NOTE | 2023-07-30 15:21 | WPDPROCEDUR ---
Procedures Central Line Placement Left IJ: Central Line Date: 07/30/23 Central Line Time: 14:45 Discussed w/ the patient/family/POA,the placement of a central venous catheter, including its clinical necessity/indication & associated potential risks, benifits and alternatives.: Yes The patient/family/POA understand(s) and acknowledge(s) the need to proceed with central venous catheter insertion as an important element of the patient's clinical management.: Yes Consent: I have discussed with the patient brother and nephew, the non-emergent placement of a temporary dialysis catheter, including its clinical necessity/indication and associated potential risks and complications. The patient's brother understand(s) and acknowledge(s) the need to proceed with dialysis catheter insertion as an important element of the patient's clinical management. Time Out Performed: Yes Patient Position: supine Patient placed on monitor/pulse ox: Yes Provider Prep: mask, sterile gown, Max. sterile barrier precautions and hand hygiene with conventional soap/water or alcohol based hand rub Central line prep: Povidone-Iodine 1% Sterile US Technique with sterile gel/sterile probe covers: Yes Central line lumen inserted: triple Length (cm): 20 Depth of Insertion (cm): 20 Post Procedure: sutured in place, good blood return, all ports aspirated, flushed, capped, transparent dressing and aseptic technique maintained throughout procedure Post procedure x-ray: tip of catheter in good position Patient tolerated procedure: well Complications: none
--- NOTE | 2023-07-30 15:22 | PM.EVENT ---
Event Note Event Note Event Note: After discussion with Nephrology we decided to proceed with hemodialysis. I spoke to patient's nephew by phone and explained him patient's status including worsening renal function and need for hemodialysis. He wanted to discuss with other family members. I received a call from patient's brother and I explained him patient's current condition, worsening renal function and need for hemodialysis. I also explained him risks and benefits of dialysis and alternative outcomes if the family decides not to proceed with hemodialysis. We also discussed hemodialysis catheter insertion with this risk and benefits. We discussed goals of care, patient's wishes and patient's quality of life. He stated that he would like to discuss with his sister and other family members before making any decision. Later patient's brother called and spoke to nurse and consented to proceed with hemodialysis catheter insertion and hemodialysis. I spoke to Dr. Yip placed a left IJ pretty hemodialysis catheter. While I was switching the catheter he called back and told the nurse that he wants to reverse his decision as he had time to think about it and discuss with the family members and does not feel the patient would want to continue like this. After dialysis catheter insertion I spoke to him by phone again and he told me the patient had a very poor quality of life with him mostly being in bed or wheelchair-bound. Patient has bilateral above knee amputation, he has heart failure uncontrolled diabetes and now has renal failure and respiratory failure requiring mechanical ventilation. He feels the patient would never want to go to a senior living or live in a facility. He also would not want to live dependent on other people taking him or transporting him to dialysis center. He feels the patient would want at this point not to proceed with dialysis and instead choose comfort care. I explained him the process of palliative extubation and comfort care. He states that he would like to hold on hemodialysis at this time and would like to discuss with other family members and make a final decision. I have requested him to discuss and once all family members are in agreement, let us know whether to proceed with hemodialysis or goes altered liver out of palliative extubation and comfort care. Time spent in advance care planning including several phone calls with different family members 35 minutes
[2023-07-30 16:54] LABS: Glucose Point of Care 307 mg/dl (65-105)
--- NOTE | 2023-07-30 18:06 | PM.IMPN ---
Progress Note: A&P Assessment and Plan (1) CHARLIE (acute kidney injury): Code(s): N17.9 - Acute kidney failure, unspecified Status: Acute (2) Sepsis: Code(s): A41.9 - Sepsis, unspecified organism Status: Acute (3) Coagulopathy: Code(s): D68.9 - Coagulation defect, unspecified Status: Acute (4) Acute respiratory failure: Code(s): J96.00 - Acute respiratory failure, unspecified whether with hypoxia or hypercapnia Status: Acute (5) C. 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 they will request withdrawal of care in the morning. that is a reasonable decision considering all of his acute issues. answered questions and concerns with the family at bedside to satisfaction. no further changes in mgmt at this time. Subjective Date/time seen: 07/30/23 18:06 Interval history: patient's family at bedside, they have decided comfort care/withdrawal of care in the AM Review of Systems Review of Systems: ROS unobtainable: Yes unobtainable due to medical condition Exam Const: General: comfortable Other: sedated Eyes: Pupils: Equal, round and reactive pupils present Resp: Other: mech breath sounds Cardio: Rate: tachycardic GI: Inspection: distended GI Palp: Yes Firmness to palpation present (GI) Objective Data Vital Signs Vital Signs: Vital Signs - 24 hr 07/29/23 20:09 07/29/23 20:09 07/29/23 20:50 Temperature Pulse Rate 140 H 134 H 131 H Respiratory Rate 18 Blood Pressure Pulse Oximetry 99 Oxygen Delivery Mechanical Ventilation Fraction of Inspired Oxygen 30 07/29/23 20:00 07/29/23 22:36 07/29/23 22:36 Temperature Pulse Rate 129 H 111 H 111 H Respiratory Rate Blood Pressure Pulse Oximetry Oxygen Delivery Fraction of Inspired Oxygen 07/29/23 20:00 07/29/23 22:30 07/29/23 22:00 Temperature 99.9 F H Pulse Rate 126 H 116 H 113 H Respiratory Rate 18 18 Blood Pressure 107/91 H 80/62 L Pulse Oximetry 99 100 Oxygen Delivery Fraction of Inspired Oxygen 07/29/23 20:00 07/29/23 23:20 07/29/23 20:00 Temperature Pulse Rate 121 H Respiratory Rate Blood Pressure Pulse Oximetry 100 Oxygen Delivery Mechanical Ventilation Mechanical Ventilation Fraction of Inspired Oxygen 30 30 30 07/30/23 00:00 07/30/23 00:15 07/30/23 01:14 Temperature 100.6 F H Pulse Rate 118 H 117 H Respiratory Rate 18 Blood Pressure 111/94 H Pulse Oximetry 100 Oxygen Delivery Fraction of Inspired Oxygen 07/30/23 00:00 07/30/23 00:00 07/30/23 02:00 Temperature Pulse Rate 110 H Respiratory Rate 18 Blood Pressure 94/62 L Pulse Oximetry 99 Oxygen Delivery Mechanical Ventilation Fraction of Inspired Oxygen 30 30 07/30/23 02:00 07/30/23 02:31 07/30/23 02:42 Temperature Pulse Rate 115 H 127 H 138 H Respiratory Rate 18 Blood Pressure Pulse Oximetry 100 Oxygen Delivery Mechanical Ventilation Fraction of Inspired Oxygen 30 07/30/23 02:30 07/30/23 04:00 07/30/23 04:00 Temperature Pulse Rate 114 H Respiratory Rate Blood Pressure 75/63 L Pulse Oximetry Oxygen Delivery Mechanical Ventilation Fraction of Inspired Oxygen 30 30 07/30/23 04:00 07/30/23 04:00 07/30/23 05:04 Temperature 101.7 F H 101.7 F H Pulse Rate 122 H 116 H Respiratory Rate 18 Blood Pressure 80/68 L Pulse Oximetry 100 Oxygen Delivery Fraction of Inspired Oxygen 07/30/23 05:07 07/30/23 04:37 07/30/23 05:54 Temperature Pulse Rate 114 H 105 H 95 Respiratory Rate Blood Pressure 92/65 L Pulse Oximetry 99 Oxygen Delivery Mechanical Ventilation Fraction of Inspired Oxygen 30 07/30/23 06:00
[2023-07-30 21:25] LABS: Glucose Point of Care 305 mg/dl (65-105)
[2023-07-31] VITALS (15 sets, daily range): BP systolic 74–217; BP diastolic 56–136; PULSE 95–111; RESP 15–20; TEMP 37.1–37.5; O2SAT 99–100
[2023-07-31] MEDS: dexmedeTOMIDine 400 MCG/100 ML 400 MCG/100 ML BAG 12.58 MCG IV CONT (01:53)
[2023-07-31] MEDS: NOREPINEPHRINE 8 MG/D5W 250 ML 8 MG/250 ML BAG 7.5 MG IV CONT (01:54)
[2023-07-31] MEDS: INSULIN ASPART (*BKC) 100 UNITS/ML SUB-Q ×2 (01:56→05:29)
[2023-07-31 02:03] LABS: Glucose Point of Care 340 mg/dl (65-105)
[2023-07-31] MEDS: AMIODARONE 360 MG/D5W 200 ML 360 MG/200 ML BAG 16.67 MG IV CONT (03:21)
[2023-07-31 04:38] LABS: Alveolar/Arterial O2 Gradient 81.7 mmHg; Carboxyhemoglobin 0.2 % THb (0-2.0); Fractional Inspired Oxygen 30 %; HCO3 ABG 20.8 mEq/l (22.0-26.0); Methemoglobin ABG 0.1 %THb (0-1.5); Oxygen Content ABG 14.4 %vol (16.0-22.0); Oxygen Saturation ABG 97.3 % (95.0-100.0); Oxyhemoglobin 95.9 % THb (90.0-100.0); PO2 ABG 93.4 mmHg (80.0-100.0); PO2 FiO2 Ratio Arterial Blood 3.11 %; Reduced Hemoglobin 3.8 %THb (0-5.0); Total Hemoglobin 10.6 g/dL (12.0-18.0); pH ABG 7.418 (7.350-7.450)
[2023-07-31 04:39] LABS: Device VENTILATOR; Modified Allen's Test Pass; Site Drawn LEFT RADIAL
[2023-07-31 04:40] LABS: Arterial Blood Gas PEEP 5 cmH2O; Arterial Blood Gas Tidal Volume 420 ml; Arterial Blood Gas Vent Mode CMV; Arterial Blood Gas Ventilator rate 15 /MIN
[2023-07-31 05:35] LABS: Basophils Percent Auto 0.2 % (0.2-1.2); Eosinophils Absolute Auto 0.3 K/mm3 (0-0.3); Eosinophils Percent Auto 1.5 % (0-4.4); Hematocrit 30.4 % (42.0-52.0); Hemoglobin 9.3 g/dL (14.0-18.0); Immature Granulocyte Absolute 0.16 K/mm3 (0.00-0.031); Immature Granulocyte Percent A 0.9 % (0-0.5); Lymphocytes Absolute Auto 1.18 K/mm3 (0.9-3.2); Lymphocytes Percent Auto 6.7 % (18.3-44.2); Mean Corpuscular HGB Conc 30.6 g/dl (32-36); Mean Corpuscular Hemoglobin 25.1 pg (26-34); Mean Corpuscular Volume 81.9 fl (80-100); Mean Platelet Volume 10.4 fl (7.4-10.4); Monocytes Absolute Auto 1.7 K/mm3 (0.1-0.6); Monocytes Percent Auto 9.4 % (2.6-8.5); Neutrophils Absolute Auto 14.4 K/mm3 (1.3-6.7); Neutrophils Percent Auto 81.3 % (45.5-73.1); Nucleated Red Blood Cells Perc 0.2 % (0.0-0.2); Platelet Count Result 271 k/mm3 (150-375); Red Blood Count 3.71 M/mm3 (4.6-6.20); Red Cell Distribution Width 21.1 % (11.5-14.5); White Blood Count 17.7 K/mm3 (4.5-10.0)
[2023-07-31 05:50] LABS: INR 1.9; Partial Thromboplastin Time 40.3 SECONDS (22.3-36.8)
[2023-07-31] MEDS: CENTRAL LINE FLUSH 10 ML IV PUSH ×3 (06:03→20:21)
[2023-07-31 06:04] LABS: Alanine Aminotransferase 645 U/L (6-50); Albumin Level 3.2 g/dL (3.5-5.1); Alkaline Phosphatase 138 U/L (38-126); Anion Gap 13 mmol/L (8-16); Aspartate Amino Transferase 148 U/L (17-59); Bilirubin,Total 0.9 mg/dL (0.2-1.3); Calcium 6.8 mg/dL (8.4-10.2); Carbon Dioxide 21 mmol/L (22-30); Chloride 99 mmol/L (98-107); Estimated CRCL calculation 18 ml/min; Estimated Glomerular Filt Rate 13; Glucose 325 mg/dL (65-110); Magnesium 3.3 mg/dL (1.6-2.3); Phosphorus 5.3 mg/dL (2.5-4.5); Potassium 4.7 mmol/L (3.4-5.0); Sodium 133 mmol/L (137-145)
[2023-07-31 06:41] LABS: Blood Urea Nitrogen 126 mg/dL (9-20)
[2023-07-31 06:42] LABS: Glucose Point of Care 289 mg/dl (65-105)
[2023-07-31] MEDS: IPRATROPIUM BR 0.02% INH SOLN 0.5 MG/2.5 ML VIAL INHALATION (07:30)
[2023-07-31] MEDS: LEVALBUTEROL NEB 1.25 MG/3 ML 0.63 MG INHALATION (07:30)
--- NOTE | 2023-07-31 07:30 | PC.NURSE ---
Family to bedside, visiting prior to comfort care measure orders.
--- NOTE | 2023-07-31 09:00 | PC.NURSE ---
De. Lamar to bedside. Reviewed comfort measures with family.
[2023-07-31] MEDS: LORazepam INJ (*CRX) 2 MG/ML VIAL IV PUSH (09:13)
[2023-07-31] MEDS: MORPHINE SULFATE INJ (*CRX) 10 MG/ML AMP 5 MG IV PUSH (09:14)
--- NOTE | 2023-07-31 10:18 | WPDINTPN ---
Progress Note: A&P Assessment and Plan (1) Acute respiratory failure: Code(s): J96.00 - Acute respiratory failure, unspecified whether with hypoxia or hypercapnia Status: Acute (2) Shock: Code(s): R57.9 - Shock, unspecified Status: Acute (3) C. difficile colitis: Code(s): A04.72 - Enterocolitis due to Clostridium difficile, not specified as recurrent Status: Acute (4) Hematemesis: Code(s): K92.0 - Hematemesis Status: Acute (5) Renal failure: Code(s): N19 - Unspecified kidney failure Status: Acute (6) Fall from ground level: Code(s): W18.30XA - Fall on same level, unspecified, initial encounter Status: Acute (7) Chronic anemia: Code(s): D64.9 - Anemia, unspecified Status: Chronic (8) Atrial fibrillation with rapid ventricular response: Code(s): I48.91 - Unspecified atrial fibrillation Status: Acute (9) Elevated LFTs: Code(s): R79.89 - Other specified abnormal findings of blood chemistry Status: Acute (10) Coagulopathy: Code(s): D68.9 - Coagulation defect, unspecified Status: Acute (11) Sepsis: Code(s): A41.9 - Sepsis, unspecified organism Status: Acute Plan I reviewed patient's overnight events, imaging, labs, current infusion, current orders and examined the patient. As per my notes from yesterday had multiple meetings with the family where family was considering palliative extubation and comfort care. They finally decided after discussing with each other to discontinue aggressive life supporting measures and proceed with palliative care and extubation. Patient's sister and other family members at bedside and ready to proceed. I explained them the process that patient will be extubated and I will use opioids, anxiolytics and other agents on as needed basis to promote comfort and discontinue all medical therapy, lab testing and invasive monitoring. Patient will eventually . They verbalized understanding and agreed to proceed. Orders placed for comfort care including extubation medication. I have discussed with primary physician who is in agreement with plan Critical Care Time Spent: 30 minutes Due to a high probability of clinically significant, life threatening deterioration, the patient required my highest level of preparedness to intervene emergently and I personally spent this critical care time directly and personally managing the patient. This critical care time included obtaining a history; examining the patient; pulse oximetry; ordering and review of studies; arranging urgent treatment with development of a management plan; evaluation of patient's response to treatment; frequent reassessment; and discussions with other providers. It was exclusive of separately billable procedures and treating other patients and teaching time. Please see Assessment and Plan section and the rest of the note for further information on patient assessment and treatment This dictation may have been done utilizing a voice recognition system. Attempts have been made to correct errors. However, there may be uncorrected grammatical, spelling, and recognitions errors present. Subjective Date/time seen: 07/31/23 Overnight events reviewed. Continues to be on mechanical ventilation Review of Systems Review of Systems: ROS unobtainable: Yes unobtainable due to endotracheal tube, unobtainable due to medical condition and unobtainable due to mental status Exam Narrative: General: intubated and sedated in no acute distress HEENT:? Pupils equal and reactive, sclera is clear, ETT in place Neck:? Supple Respiratory:? Coarse breath sounds bilaterally decreased at bases, adequate air entry, no wheezing Cardiac:? Irregularly irregular, rate controlled Abdomen:? Soft, nontender, nondistended, hypoactive bowel sounds, obese Extremities:? Right AKA, left BKA, stumps sites are clean dry and intac
[2023-07-31] MEDS: ATROPINE SULFATE 1% OPHTH SOLN 5 ML BOTTLE SUBLINGUAL (11:00)
--- NOTE | 2023-07-31 13:35 | PC.NURSE ---
This patient, Brian Iyer, was transferred to [facility] via bed on 07/31/23 at 1330. Personal belongings sent with patient. Report given to GILBERTO Hodges. Appropriate documentation sent with patient.
--- NOTE | 2023-07-31 15:08 | PM.IMPN ---
Progress Note: A&P Assessment and Plan (1) C. 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 I confirmed with the family. Extubated and comfort care orders placed this AM. DNR Subjective Date/time seen: 07/31/23 15:08 Interval history: pt rests comfortably, although mouth breathing. he is RASS -4 Review of Systems Review of Systems: ROS unobtainable: Yes unobtainable due to mental status Exam Const: General: comfortable Resp: Other: coarse breath sounds Cardio: Rate: regular rate Rhythm: regular rhythm GI: GI Palp: No Tenderness to palpation present (GI) Objective Data Vital Signs Vital Signs: Vital Signs - 24 hr 07/30/23 15:32 07/30/23 15:32 07/30/23 15:42 Temperature Pulse Rate 113 H 113 H 96 Respiratory Rate 15 Blood Pressure 103/71 103/71 Pulse Oximetry Oxygen Delivery Fraction of Inspired Oxygen 07/30/23 16:05 07/30/23 17:07 07/30/23 16:00 Temperature 101.5 F H Pulse Rate 94 102 H 104 H Respiratory Rate 13 Blood Pressure 109/52 L Pulse Oximetry 99 99 Oxygen Delivery Mechanical Ventilation Fraction of Inspired Oxygen 30 07/30/23 18:38 07/30/23 18:00 07/30/23 18:00 Temperature 101.5 F H Pulse Rate 95 94 Respiratory Rate 16 Blood Pressure 98/59 L Pulse Oximetry 100 Oxygen Delivery Fraction of Inspired Oxygen 07/30/23 16:00 07/30/23 16:00 07/30/23 16:00 Temperature Pulse Rate 66 Respiratory Rate 16 Blood Pressure Pulse Oximetry 100 Oxygen Delivery Mechanical Ventilation Fraction of Inspired Oxygen 30 30 07/30/23 18:00 07/30/23 16:00 07/30/23 18:00 Temperature Pulse Rate 68 66 64 Respiratory Rate 16 16 16 Blood Pressure Pulse Oximetry Oxygen Delivery Fraction of Inspired Oxygen 07/30/23 20:00 07/30/23 20:15 07/30/23 20:00 Temperature Pulse Rate 100 Respiratory Rate 18 Blood Pressure 82/69 L 100/84 Pulse Oximetry 100 Oxygen Delivery Fraction of Inspired Oxygen 30 07/30/23 21:16 07/30/23 22:00 07/30/23 20:00 Temperature 98.7 F Pulse Rate 93 101 H 99 Respiratory Rate 16 Blood Pressure 92/80 L Pulse Oximetry 99 100 Oxygen Delivery Mechanical Ventilation Fraction of Inspired Oxygen 30 07/30/23 22:00 07/31/23 00:04 07/31/23 00:00 Temperature Pulse Rate 101 H 106 H 99 Respiratory Rate Blood Pressure 114/75 Pulse Oximetry 100 Oxygen Delivery Mechanical Ventilation Fraction of Inspired Oxygen 30 07/31/23 00:44 07/31/23 01:46 07/31/23 01:53 Temperature Pulse Rate 97 101 H 95 Respiratory Rate 15 Blood Pressure 217/136 H 74/56 L Pulse Oximetry Oxygen Delivery Fraction of Inspired Oxygen 07/31/23 01:54 07/31/23 02:55 07/31/23 03:21 Temperature Pulse Rate 111 H 99 102 H Respiratory Rate Blood Pressure 88/66 L 101/72 Pulse Oximetry 100 Oxygen Delivery Mechanical Ventilation Fraction of Inspired Oxygen 30 07/31/23 00:00 07/31/23 00:00 07/31/23 02:00 Temperature 98.7 F Pulse Rate 103 H 100 Respiratory Rate 15 15 Blood Pressure 114/75 90/59 L Pulse Oximetry 100 100 Oxygen Delivery Fraction of Inspired Oxygen 30 07/31/23 04:20 07/31/23 04:00 07/31/23 06:00 Temperature 99.5 F Pulse Rate 100 103 H 104 H Respiratory Rate 15 15 Blood Pressure 92/69 L 99/74 L Pulse Oximetry 100 100 99 Oxygen Delivery Mechanical Ventilation Fraction of Inspired Oxygen 30 07/31/23 04:00 07/31/23 00:00 07/31/23 02:00 Temperature Pulse Rate 102 H 100 Respiratory Ra
--- NOTE | 2023-07-31 23:06 | PC.NURSE ---
2235 PATIENT TO ALBERTO PER CART
--- NOTE | 2023-08-01 17:12 | PM.DDS ---
Discharge Summary Date and Time Date of : 07/31/23 Time of : 21:10 Provider Pronounced By: Josette Srivastava RN Probable Cause of Probable Cause of : acute renal failure Summary Hospital Course: 73-year-old male with history of type 2 diabetes mellitus, hypertension, combined systolic and diastolic congestive heart failure, paroxysmal atrial fibrillation, coronary artery disease status post CABG in June 2016, peripheral vascular disease status post bilateral [id number] amputations, chronic anemia, and benign prostatic hyperplasia who presented to the emergency department via EMS from home for evaluation after a fall. He was admitted and being treated for multiple acute conditions including acute respiratory failure, septic shock, c diff colitis, hematemesis, acute kidney injury, anemia, atrial fibrillation. Eventually, considering the patient's underlying comorbidities and acute illnesses, the family decided he would not want to go through dialysis. Care was withdrawn and pt extubated on morning of 07/31/23. He at the time of mentioned above. Additional Data Confirmation of as documented by pronouncing clinician: Pupillary Reflex, Palpable Pulses, Response to Stimuli, Heart Tones and Breath Sounds Name of Provider Notified: Dr. Mccoy Time Provider Notified: 21:18 Provider Requests Autopsy: No Family Requests Autopsy: No [employer] Notified: Yes Date [facility] Notified of : 07/31/23 Time [facility] Notified of : 21:42
[2023-08-03 10:10] LABS: Chloride Rand Ur <20; Creatinine Random Urine 88
== END 2023-07-31 21:10 | disposition expired | DRG 870 ==
LOC: ANHED 08:06 → ANHIMU 13:04 → ANHICU 07-25 23:28 → ANH2MED 08-01 11:37 → ANHICU 08-01 11:37
PROVIDERS: Emergency Medicine; Family Medicine; Internal Medicine; Internal Medicine Gastroenterology; Nurse Practitioner; Physician Assistant; Admitting Provider Student in an Organized Health Care Education/Training Program; Emergency Provider General Practice; Visit Provider General Practice
PROC: 0DJ08ZZ Inspection of Upper Intestinal Tract, Via Natural or Artificial Opening Endoscopic (ICD-10-PCS; CPT 43235; principal; 2023-07-28 15:30)
DX: J96.01 Acute respiratory failure with hypoxia; A41.1 Sepsis due to other specified staphylococcus; R65.21 Severe sepsis with septic shock; K72.00 Acute and subacute hepatic failure without coma; D65 Disseminated intravascular coagulation [defibrination syndrome]; N17.9 Acute kidney failure, unspecified; A04.72 Enterocolitis due to Clostridium difficile, not specified as recurrent; I50.42 Chronic combined systolic (congestive) and diastolic (congestive) heart failure; K92.0 Hematemesis; E87.1 Hypo-osmolality and hyponatremia; S01.81XA Laceration without foreign body of other part of head, initial encounter; W19.XXXA Unspecified fall, initial encounter; B96.20 Unspecified Escherichia coli [E. coli] as the cause of diseases classified elsewhere; D64.9 Anemia, unspecified; E11.42 Type 2 diabetes mellitus with diabetic polyneuropathy; E11.51 Type 2 diabetes mellitus with diabetic peripheral angiopathy without gangrene; E86.0 Dehydration; E78.5 Hyperlipidemia, unspecified; I48.0 Paroxysmal atrial fibrillation; I11.0 Hypertensive heart disease with heart failure; I25.10 Atherosclerotic heart disease of native coronary artery without angina pectoris; I25.5 Ischemic cardiomyopathy; I95.9 Hypotension, unspecified; K29.70 Gastritis, unspecified, without bleeding; K21.00 Gastro-esophageal reflux disease with esophagitis, without bleeding; N40.0 Benign prostatic hyperplasia without lower urinary tract symptoms; R79.89 Other specified abnormal findings of blood chemistry; Z28.21 Immunization not carried out because of patient refusal; Z79.4 Long term (current) use of insulin; Z79.01 Long term (current) use of anticoagulants; Z89.612 Acquired absence of left leg above knee; Z89.611 Acquired absence of right leg above knee; Z96.641 Presence of right artificial hip joint; Z95.1 Presence of aortocoronary bypass graft; Z90.79 Acquired absence of other genital organ(s)
CPT/HCPCS: 12013; 36415; 36430; 36600; 70450; 70486; 71045; 72125; 74018; 74176; 76705; 76775; 80048; 80053; 80069; 80074; 80076; 80202; 81001; 82271; 82375; 82436; 82533; 82550; 82570; 82805; 82948; 83036; 83050; 83605; 83690; 83735; 83880; 83986; 84100; 84133; 84300; 84443; 84484; 85014; 85018; 85025; 85027; 85380; 85384; 85610; 85730; 85999; 86850; 86900; 86901; 87040; 87045; 87070; 87077; 87086; 87088; 87106; 87147; 87181; 87186; 87205; 87269; 87272; 87427; 87449; 87493; 93005; 94002; 94003; 94640; 96365; 96366; 99285; A9270; C1751; C1752; C8929; C9113; G0378; J0171; J0282; J0696; J1650; J1720; J1815; J1836; J2060; J2185; J2250; J2270; J2371; J2405; J2704; J3010; J3370; J3430; J7030; J7040; J7050; J7060; P9017; P9047; Q9957